=== PATIENT | male | born 1935 | race Caucasian/White ===

== ENCOUNTER 2019-04-27 12:27 | Inpatient (IN) | payer MEDICARE, BC ==
[~2019-04-27] VITALS: Ht 177.8 cm; Wt 88.7 kg
--- NOTE | ~2019-04-27 | HEMODYNAMI ---
PATIENT:VANE SINGH MEDICAL RECORD: [id number] : 39 [id number] ADMISSION DATE: 04/27/19 Generatedon:04/29/20199:39 Patient name: VANE SINGH Patient #: [id number] SSN: [id number] : 1935 Date of study: 04/29/2019 Page: Of Hemodynamic Procedure Report Patient Data Patient Demographics Procedure consent was obtained First Name: VANE Gender: Male Last Name: FRANCISCO : 1935 [facility] Initial: JEANA Age: 84 year(s) Patient #: [id number] Race: Unknown SSN: [id number] Additional ID: [id number] Contact details [address]: [address] [place] [address] State: [place] City: [place] Zip code: [address] Past Medical History Allergies Allergen Reaction Date Comments Reported Other allergy 04/29/2019 cipro Admission Admission Data Admission Date: 04/27/2019 Admission Time: 14:27 Arrival Date: 04/29/2019 Arrival Time: 0:00 Admit Source: Other Insurance Payor: Private Room #: D.2119 health insurance, Medicare [facility] #: [id number] Height (in.): 70 BSA: 2.09 (m2) Height (cm.): 177.8 BMI: 28.75 (kg/m2) Weight (lbs.): 200.4 Weight (kg.): 90.9 Lab Results Lab Result Date: 04/29/2019 Lab Result Time: 0:00 Biochemistry Name Units Result Min Max BUN mg/dl 14 --(--*-)-- 7 18 CK-MB ng/ml 4.3 --(----)*- 0 3.6 Creatinine mg/dl 0.9 --(-*--)-- 0.6 1.3 eGFR ml/min 85.75267 -*(----)-- 90 120 NONAFRICAN Troponin l ng/ml 0.848 --(----)-* 0 0.06 CBC Name Units Result Min Max Hemoglobin g/dl 15.1 --(-*--)-- 13.5 17.5 Procedure Procedure Types Cath Procedure Diagnostic Procedure C [facility] w/Coronaries Sedation Charges Moderate Sedation up to 15 minutes Procedure Description Procedure Date Procedure Date: 04/29/2019 Procedure Start Time: 9:13 Procedure End Time: 9:37 Procedure Staff Name Function Scott Jones MD Performing Physician Winter Coats RT Monitor Sunitha Romo RN Nurse Kayla Rosales RT Scrub Maikel Ledezma RT Scrub Procedure Data Cath Procedure Fluoroscopy Diagnostic fluoroscopy Total fluoroscopy Time: 3.9 time: 3.9 min min Diagnostic fluoroscopy Total fluoroscopy dose: 808 dose: 808 mGy mGy Contrast Material Contrast Material Type Amount (ml) Isovue 300 79 Entry Location Entry Primary Successful Side Size Upsize Upsize Entry Closure Baca ccessful Closure Location (Fr) 1 (Fr) 2 (Fr) Remarks Device Remarks Radial Right 6 Fr Mechanical artery Short Compression Estimated blood loss: 10 ml Diagnostic catheters Device Type Used For End Catheter Placement DIAGNOSTIC [place] 110cm 5 Procedure Fr catheter ([id number]) DIAGNOSTIC Stefan 110cm Procedure 5Fr catheter (633205) Procedure Complications No complications Procedure Medications Medication Administration Route Dosage 0.9% NaCl I.V. 100 ml/hr Oxygen NC 2 l/min Lidocaine 2% added to field 20 Heparin Flush Bag added to field 2 bags (1000units/500ml NS) Versed I.V. 1 mg Fentanyl I.V. 50 mcg Radial Cocktail added to field 1 syringe (Verapamil 2mg/Nitro 400mcg/Heparin 1500units) Versed I.V. 1 mg Fentanyl I.V. 50 mcg Hemodynamics Rest BSA: 2.09 (m2) HGB: 15.1 (g/dl) O2 Consumption: Estimated: 221.56 (ml/min) O2 Co nsumption indexed: Estimated:106.01 (ml/min/m) Heart Rate: 49 (bpm) Pressure Samples Time Site Value (mmHg) Purpose Heart Use Rate(bpm) 9:16 LV 96/-6,3 Snapshot 67 Gradients Valve Time Site Site Mean SEP/DFP Peak To Heart Use 1 2 (mmHg) (sec/min) Peak Rate (mmHg) (bpm) Aortic 9:16 LV AO 74 Snapshots Pre Cath Intra NCS Post Cath Vital Signs Time Heart Resp SPO2 etCO2 NIBP (mmHg) Rhythm Pain Sedation Rate (ipm) (%) (mmHg) Status Level (bpm) 8:58:08 56 30 96 33 137/71(91) NSR 0 (11) 10(A) , No pain 9:02:22 52 14 98 33.8 130/73(108) NSR 0 (11) 10(A) , No pain 9:06:38 48 18 95 33.8 114/59(86) NSR 0 (11) 10(A) , No pain 9:10:48 49 18 95 28.6 106/63(84) NSR 0 (11) 10(A) , No pain 9:14:56 53 16 95 37.6 112/57(76) NSR 0 (11) 9(A) , No pain 9:19:04 65 19 92 46.6 104/62(73) NSR 0 (11) 9(A) , No pain 9:23:11 57 17 90 33.1 100/54(74) NSR 0 (11) 9(A) , No pain 9:27:15 58 18 91 21.8 110/63(85) NSR 0 (11) 9(A) , No pain 9:31:23 56 19 95 0 102/62(79) NSR 0 (11) 9(A) , No pain 9:35:26 55 19 95 14.3 105/63(90) NSR 0 (11) 10(A) , No pain Medications Time Medication Route Dose Verified Delivered Reason Notes Ef fectiveness by by 8:58:16 0.9% NaCl I.V. 100 Scott Sunitha used for ml/hr Robert MICHELLE Demetrius formal waiter/waitress 8:58:28 Oxygen NC 2 l/min Scott Sunitha for low 02 Robert MICHELLE Demetrius sats RN 8:58:41 Lidocaine 2% added 20ml Sunitha Sunitha for local to vial Demetrius Demetrius anesthetic field RN RN 8:58:52 Heparin Flush added 2 bags Sunitha Sunitha used for Bag to Demetrius Demetrius procedure (1000units/500ml field RN RN NS) 9:11:36 Versed I.V. 1 mg Scott Sunitha for Robert Romo sedation RN 9:11:46 Fentanyl I.V. 50 mcg Scott Sunitha for Robert Romo sedation RN 9:13:18 Radial Cocktail added 1 Scott Sunitha used for (Verapamil to syringe Robert Romo procedure 2mg/Nitro field RN 400mcg/Heparin 1500units) 9:16:05 Fentanyl I.V. 50 mcg Scott Sunitha for Robert Romo sedation RN 9:16:57 Versed I.V. 1 mg Scott Sunitha for Robert Romo sedation hose suspender cutter Log Time Note 8:11:46 Informed consent obtained and on chart 8:29:12 Admit Source: Other 8:29:16 Arrival Date: 04/29/2019 12:00:00 AM 8:29:38 Insurance Payor : Private health insurance, Medicare 8:30:01 Patient Height : 70 inches 8:30:07 Patient Weight : 200.4 lbs 8:33:03 Lab Result : Creatinine 0.9 mg/dl 8:33:03 Lab Result : BUN 14 mg/dl 8:33:03 Lab Result : Hemoglobin 15.1 g/dl 8:33:03 Lab Result : eGFR NONAFRICAN 85.15679 ml/min 8:33:03 Lab Result : CK-MB 4.3 ng/ml 8:33:03 Lab Result : Troponin l 0.848 ng/ml 8:33:20 Diagnostic Cath Status : Urgent 8:34:45 Procedure Status Urgent Heart Cath (IP). 8:34:49 Sunitha Romo RN sent for patient. Start room use. 8:34:50 Time tracking: Regular hours (M-F 7:00 - 5:00) 8:35:06 Plan of Care:Hemodynamics will remain stable., Cardiac rhythm will remain stable., Comfort level will be maintained., Respiratory function will remain adequate., Patient/ family verbilizes understanding of procedure., Procedure tolerated without complication., Recovers from procedure without complications.. 8:35:16 Patient received from Med II to CCL 2 Alert and oriented. Tansferred to table in Supine position. 8:38:25 H&P Date Dictated: 04/27/2019 Within 30 days and on chart.. 8:38:47 2) 60-89 Mildly reduced kidney function, and other findings (as for stage 1) point to kidney disease. 8:39:21 Maximum allowable contrast dose (3.7 X eGFR X 0.75)238 ml. 8:56:56 Vital chart was started 8:58:16 0.9% NaCl 100 ml/hr I.V. was administered by Sunitha Romo RN; used for procedure; Verbal order read back and verified. 8:58:28 Oxygen 2 l/min NC was administered by Sunitha Romo RN; for low 02 sats; Verbal order read back and verified. 8:58:41 Lidocaine 2% 20ml vial added to field was administered by Sunitha Romo RN; for local anesthetic; Verbal order read back and verified. 8:58:52 Heparin Flush Bag (1000units/500ml NS) 2 bags added to field was administered by Sunitha Romo RN; used for procedure; Verbal order read back and verified. 9:05:21 Warm blankets applied, and lonnie hugger turned on for patient comfort. 9:05:22 Correct patient and procedure confirmed by team. 9:05:23 ECG and BP/O2 sat monitors applied to patient. 9:05:24 Baseline sample Acquired. 9:05:28 Rhythm: sinus rhythm 9:05:30 Full Disclosure recording started 9:05:31 Pre-procedure instructions explained to patient. 9:05:32 Pre-op teaching completed and patient verbalized understanding. 9:05:35 Family in patients room. 9:05:37 Patient NPO since Midnight. 9:05:50 Patient allergic to Other allergycipro 9:05:53 Is the patient allergic to Iodine/contrast media? No. 9:05:54 Was the patient premedicated? Yes 9:05:56 Is patient on blood thinner?No 9:06:12 Bleeding risk 1.2%. 9:06:15 Patient diabetic? Yes. 9:06:16 If diabetic: On Metformin? Yes 9:06:23 If on Metformin: Last Dose? 04/26/2019 9:06:31 Previous problem with sedation/anesthesia? Yes nausea 9:06:34 Snore? Yes 9:06:35 Sleep apnea? No 9:06:41 Dentures? No ? 9:06:52 Pre procedure: right dorsailis pedis pulse 2+ Normal; easily identifiable; not easily obliterated 9:07:01 IV patent on arrival in right forearm with 0.9% NaCl at [facility]. 9:07:24 Patient arrived on heprin at [facility] IV drip right forearm 9:07:33 Lab results completed and on chart. 9:07:37 Right Radial & Right Groin area was prepped with chlora-prep and draped in sterile fashion 9:07:38 Alarms reviewed by R. N. 9:07:39 Sharps counted by scrub and verified by R.N. 9::41 Physician paged 9:08:12 Physician arrived 9:: --------ALL STOP TIME OUT------ 9:08:14 Final Timeout: patient, procedure, and site verified with staff and physician. All members of the team are in agreement. 9:08:17 Right Radial & Right Groin site verified by team. 9:08:34 Fire Safety Assessment: A--An alcohol-based skin anteseptic being used preoperatively., C--Open oxygen or nitrous oxide is being used., D--An ESU, laser, or fiber-optic light is being used. 9:09:06 Physical assessment completed. ASA score P 3 - A patient with severe systemic disease as per Scott Jones MD. 9:09:17 Sedation plan: IV Moderate Sedation Medication:Versed, Fentanyl 9:10:44 Zero performed for pressure channel P1 9:11:36 Versed 1 mg I.V. was administered by Sunitha Romo RN; for sedation; Verbal order read back and verified. 9:11:46 Fentanyl 50 mcg I.V. was administered by Sunitha Romo RN; for sedation; Verbal order read back and verified. 9:12:55 Zero performed for pressure channel P1 9:13:06 Procedure started. 9:13:11 Local anesthetic to right radial artery with Lidocaine 2% by Scott Jones MD.INITIAL ACCESS ONLY 9:13:18 Radial Cocktail (Verapamil 2mg/Nitro 400mcg/Heparin 1500units) 1 syringe added to field was administered by Sunitha Romo RN; used for procedure; Verbal order read back and verified. 9:13:20 A 6 Fr Short sheath was inserted into the Right Radial artery 9:13:46 Use device set Radial Dx or PCI 9:13:48 ACIST Syringe (05647) opened to sterile field. 9:13:49 Medline Cath Pack ([id number]) opened to sterile field. 9:13:49 Bag Decanter () opened to sterile field. 9:13:50 ACIST Hand Control (81021) opened to sterile field. 9:13:50 ACIST Manifold (53662) opened to sterile field. 9:13:51 Tegaderm 4 x 4 (1626W) opened to sterile field. 9:13:52 MBrace Wrist Support ([id number]) opened to sterile field. 9:13:53 NEEDLE Cook 21G 4cm Radial (L34435) opened to sterile field. 9:13:57 EMERALD Guide Wire (881-385) opened to sterile field. 9:13:58 SHEATH 6FR RAIN (3302267) opened to sterile field. 9:15:06 A DIAGNOSTIC [place] 110cm 5 Fr catheter (400460) was advanced over the wire and used for Procedure. 9:15:52 LV angiography performed. 9:16:05 Fentanyl 50 mcg I.V. was administered by Sunitha Romo RN; for sedation; Verbal order read back and verified. 9:16:16 LV gram done using MERRITT 9:16:37 EF : 50 % 9:16:57 Versed 1 mg I.V. was administered by Sunitha Romo RN; for sedation; Verbal order read back and verified. 9:18:26 RCA angiography performed. 9:18:52 Catheter exchanged over wire. 9:19:38 A DIAGNOSTIC Stefan 110cm 5Fr catheter (076871) was advanced over the wire and used for Procedure. 9:19:41 LCA angiography performed. 9:22:55 ACCDominant side:Right 9:23:50 Catheter removed. 9:23:54 Mortality risk .2%. 9:30:39 ZEPHYR REGULAR TR BAND (394070) opened to sterile field. 9:33:08 Sheath removed intact; hemostasis achieved with Mechanical Compression to the Right Radial artery. 9:33:12 Procedure ended.(Physican Out) 9:34:04 Fluoroscopy time 03.90 minutes. 9:34:31 Fluoroscopy dose: 808 mGy 9:34:31 Flurop Dose total: 808 9:34:38 Dose Area Product 64328 mGy/cm. 9:34:42 Contrast amount:Isovue 300 79ml. 9:34:44 Maximum allowable dose exceeded? No. 9:34:46 Sharps counted by scrub and verified by R.N. 9:35:19 [place] band inflated with 8cc of air. 9:35:22 Insertion/operative site no bleeding no hematoma. 9:35:32 Post right radial artery:stable 9:35:35 Post Procedure Pulses reassessed and unchanged 9:35:43 Post-procedure physical assessment completed. ASA score P 3 - A patient with severe systemic disease as per Scott Jones MD. 9:35:48 Post procedure rhythm: unchanged. 9:35:51 Estimated blood loss: 10 ml 9:35:53 Post procedure instruction explained to patient.Patient verbalizes understanding. 9:36:20 Procedure type changed to Cath procedure, Diagnostic procedure, LHC, [facility] w/Coronaries, Sedation Charges, Moderate Sedation up to 15 minutes 9:37:03 Procedure and supply charges have been captured, reviewed, submitted and are correct. 9:37:13 Procedure Complication : No complications 9:37:18 Vital chart was stopped 9:37:22 [facility] Findings: MVD- CABG consult 9:37:25 Operative report dictated upon procedure completion. 9:37:26 See physician's report for complete and final results. 9:37:29 Report given to [facility]. 9:37:34 Patient transfered to [facility] with Bed. 9:37:36 Procedure ended. 9:37:36 Full Disclosure recording stopped 9:37:45 End room use (Document Last) 9:38:00 restarted the heprin 9:39:21 Device Usage Item Name Manufacture Quantity Catalog Hospital Part Current Minima l Lot# / Number Charge Number Stock Stock Serial# Code ACIST Acist 1 23170 [id number] 469769 515597 20 Syringe Medical (23625) Systems Inc Medline Medline 1 [id number] 253348 28435 006754 5 Cath Pack ([id number]) Bag Microtek 1 437423 66958 498417 5 Decanter Medical Inc. () ACIST Hand Acist 1 05167 331279 448514 084768 5 Control Medical (80360) Systems Inc ACIST Acist 1 93681 162679 159594 351186 5 Manifold Medical (79632) Systems Inc Tegaderm 4 3M 1 1626W 764899 514492 213435 5 x 4 (1626W) MBrace Advanced 1 140-0250-00 790225 92330 347288 5 Wrist Vascular Support Dynamics (022871981) NEEDLE Cook Cook Medical 1 K29245 137926 038542 404325 5 21G 4cm Radial (B76007) EMERALD Cardinal 1 502-888 430869 024180 376565 5 Guide Wire Health (324-097) SHEATH 6FR Cardinal 1 9795842 367552 4652031 177283 5 RAIN Health (4043497) DIAGNOSTIC Terumo 1 40-5013 358940 252135 426895 5 [place] 110cm 5 Fr catheter (196142) DIAGNOSTIC Terumo 1 40-5023 120915 119995 349938 5 Stefan 110cm 5Fr catheter (418598) ZEPHYR Cardinal 1 050755 343354 9978896 133820 5 REGULAR TR Health BAND (768035) Signature Audit [place] Stage Time Signature Unsigned Intra-Procedure 04/29/2019 Winter Coats 9:38:26 AM RT(R) Intra-Procedure 04/29/2019 Sunitha 9:39:21 AM Demetrius TORRES Intra-Procedure 04/29/2019 Scott Jones MD 9:39:50 AM Signatures Performing Physician : Signature : Scott Jones MD Date : Time : Monitor : Winter Coats Signature : RT Date : Time : Nurse : Sunitha Signature : Demetrius TORRES Date : Time : [facility] [address] [place] [address]
[2019-04-27] MEDS ORDERED: LIPITOR20 MG PO (12:34)
[2019-04-27] MEDS ORDERED: GLUCOPHAGE500 MG PO (12:36)
[2019-04-27] MEDS ORDERED: LISINOPRIL20 MG PO (12:36)
[2019-04-27] MEDS ORDERED: OMEPRAZOLE20 M1 PO (12:37)
[2019-04-27] MEDS ORDERED: MULTI-DAY VITAM1 TAB PO (12:37)
[2019-04-27 13:08] LABS: BASOPHILS 0.6 % (0-2); EOSINOPHILS 2.9 % (0-7); HEMATOCRIT 44.4 % (42.0-54.0); HEMOGLOBIN 15.1 g/dL (13.5-17.5); IMMATURE GRANULOCYTES 0.4 % (0-5); LYMPHOCYTES 27.8 % (15-50); MCH 30.5 pg (26.0-34.0); MCV 89.7 fL (80.0-100.0); MEAN PLATELET VOLUME 8.9 fL (7.4-10.4); MONOCYTES 7.2 % (2-11); NEUTROPHILS 61.1 % (40-80); PLATELET COUNT 185 10x3/uL (130-400); RBC 4.95 10x6/uL (4.20-6.10); RDW 13.4 % (11.5-14.5); WBC 7.8 10x3/uL (4.8-10.8)
[2019-04-27 13:18] LABS: APTT 42.8 SECONDS (22.8-39.4); INR 1.1 (0.85-1.17); PROTIME 13.7 SECONDS (11.6-15.0)
[2019-04-27 13:31] VITALS: BP 130/71
[2019-04-27 13:58] LABS: ALBUMIN 3.7 g/dL (3.4-5.0); ALKALINE PHOSPHATASE 47 U/L (46-116); ALT (SGPT) 24 U/L (10-68); BILIRUBIN - TOTAL 0.92 mg/dL (0.2-1.3); CALC OSMOLALITY 282 mosm/kg (275-300); CARBON DIOXIDE 32.2 mmol/L (21.0-32.0); CHLORIDE - SERUM 104 mmol/L (98-107); CREATININE - SERUM 0.8 mg/dL (0.6-1.3); GLUCOSE 117 mg/dL (74-106); POTASSIUM - SERUM 4.1 mmol/L (3.5-5.1); PROTEIN - SERUM 6.7 g/dL (6.4-8.2); SODIUM 141 mmol/L (136-145); UREA NITROGEN 14 mg/dL (7-18); eGFR NON AFRICAN AMERICAN > 90 mL/min (90-120)
[2019-04-27 14:13] LABS: CKMB 14.8 U/L (0.0-3.6); CREATINE KINASE 117 UL (21-232)
[2019-04-27 14:58] LABS: APTT 42.8 SECONDS (22.8-39.4); INR 1.07 (0.85-1.17); PROTIME 13.4 SECONDS (11.6-15.0)
--- NOTE | 2019-04-27 15:44 | NUR ---
TRANSFER FROM ER BY STRETCHER. OREINTED TO ROOM. CALL LIGHT IN REACH. WILL CONT. PLAN OF CARE.
--- NOTE | 2019-04-27 15:49 | NUR ---
PT ARRIVED TO FLOOR ALERT AND ORIENTED. LEFT FA IV INFUSING HEPARIN DRIP AT 10. FAMILY AT BEDSIDE. PT ON ROOM AIR. PLACED TELEMETRY ON PT AND HE IS RUNNING SINUS KAREEM. WILL CONTINUE TO MONITOR. BED LOW. CL IN REACH.
[2019-04-27 15:51] VITALS: BP 128/66; BMI 28.7
--- NOTE | 2019-04-27 17:21 | NUR ---
PT GIVEN UA COLLECTION CUP AND EXPLANATION GIVEN ON HOW TO COLLECT. PT VERBALZIED UNDERSTANDING.
[2019-04-27 18:19] VITALS: BP 128/66
[2019-04-27 19:07] LABS: APPEARANCE CLOUDY (CLEAR); BILIRUBIN NEGATIVE (NEGATIVE); COLOR YELLOW (YELLOW); GLUCOSE NEGATIVE (NEGATIVE); KETONE SMALL mg/dL (NEGATIVE); NITRITE NEGATIVE (NEGATIVE); PROTEIN 1+ mg/dL (NEGATIVE); SPECIFIC GRAVITY 1.015 (1.005-1.020); UROBILINOGEN NORMAL (NORMAL)
[2019-04-27 19:08] LABS: BACTERIA FEW /hpf (NEGATIVE)
[2019-04-27 19:38] LABS: CKMB 10.9 U/L (0.0-3.6); CREATINE KINASE 108 UL (21-232)
[2019-04-27 19:39] LABS: TROPONIN-I 1.962 ng/mL (0.000-0.060)
--- NOTE | 2019-04-27 19:45 | NUR ---
INITIAL ROUNDS AND ASSESSMENT COMPLETED. PT UP AND ABOUT IN HIS ROOM. WEARING A BRIEF. ALERT/ORIENTED. HEPARIN DRIP INFUSING AT 10ML/HR TO RFA. SR PER TELEMETRY. PT TEACHING ON NPO AFTER MIDNIGHT UNTIL SEEN BY WRIST LINER IN AM.
[2019-04-27 20:00] VITALS: BP 114/65
--- NOTE | 2019-04-27 20:16 | NUR ---
1920 PTT RESULT 112.1. HEPARIN DRIP ON HOLD X 30 MINUTES. THEN WILL RESUME AT 8ML/HR.
--- NOTE | 2019-04-27 21:15 | NUR ---
HEPARIN DRIP RESTARTED AT 8ML/HR. NEXT PTT IN 6 HOURS.
[2019-04-28 00:30] VITALS: BP 141/58
[2019-04-28 03:14] LABS: BASOPHILS 1.1 % (0-2); EOSINOPHILS 4.3 % (0-7); HEMATOCRIT 42.1 % (42.0-54.0); HEMOGLOBIN 14.2 g/dL (13.5-17.5); IMMATURE GRANULOCYTES 0.4 % (0-5); LYMPHOCYTES 34.4 % (15-50); MCH 30.1 pg (26.0-34.0); MCHC 33.7 g/dL (31.0-37.0); MCV 89.4 fL (80.0-100.0); MEAN PLATELET VOLUME 8.9 fL (7.4-10.4); MONOCYTES 8.6 % (2-11); NEUTROPHILS 51.2 % (40-80); PLATELET COUNT 199 10x3/uL (130-400); RBC 4.71 10x6/uL (4.20-6.10); RDW 13.4 % (11.5-14.5); WBC 8.5 10x3/uL (4.8-10.8)
[2019-04-28 03:27] LABS: INR 1.13 (0.85-1.17)
[2019-04-28 03:32] LABS: APTT 67.6 SECONDS (22.8-39.4)
[2019-04-28 03:38] LABS: CALC OSMOLALITY 286 mosm/kg (275-300); CALCIUM 8.7 mg/dL (8.5-10.1); CHLORIDE - SERUM 104 mmol/L (98-107); CKMB 5.5 U/L (0.0-3.6); CREATINE KINASE 76 UL (21-232); CREATININE - SERUM 0.9 mg/dL (0.6-1.3); GLUCOSE 119 mg/dL (74-106); POTASSIUM - SERUM 4.2 mmol/L (3.5-5.1); SODIUM 143 mmol/L (136-145); UREA NITROGEN 14 mg/dL (7-18); eGFR NON AFRICAN AMERICAN 86 mL/min (90-120)
[2019-04-28 03:46] LABS: TROPONIN-I 1.394 ng/mL (0.000-0.060)
[2019-04-28 04:00] VITALS: BP 114/55
--- NOTE | 2019-04-28 04:09 | NUR ---
SCHEDULED PTT 67.6. WITHIN PARAMETERS. NEXT PTT ON THE FOLLOWING AM.
--- NOTE | 2019-04-28 06:28 | NUR ---
PT RESTING IN BED. HEPARIN DRIP NOW INFUSING AT 8ML/HR AND IS IN THERAPEUTIC RANGE. NO REPORTS OF PAIN OR DISCOMFORT. 57/SB PER TELEMETRY. CPOC AND REPORT TO ONCOMING NURSE.
[2019-04-28 08:13] VITALS: BP 108/54
[2019-04-28 09:51] LABS: CKMB 4.3 U/L (0.0-3.6); CREATINE KINASE 68 UL (21-232)
[2019-04-28 09:52] LABS: TROPONIN-I 0.848 ng/mL (0.000-0.060)
[2019-04-28 10:54] LABS: ALT (SGPT) 20 U/L (10-68); CALC OSMOLALITY 286 mosm/kg (275-300); CALCIUM 8.7 mg/dL (8.5-10.1); CARBON DIOXIDE 27.3 mmol/L (21.0-32.0); CHLORIDE - SERUM 104 mmol/L (98-107); CHOL - HDL RATIO 2.4 ratio (2.3-4.9); CHOLESTEROL, TOTAL 131 mg/dL (0-200); CREATININE - SERUM 0.9 mg/dL (0.6-1.3); GLUCOSE 115 mg/dL (74-106); HDL CHOLESTEROL 55 mg/dL (32-96); LDL CHOLESTEROL 55 mg/dL (0-100); POTASSIUM - SERUM 4.2 mmol/L (3.5-5.1); SODIUM 143 mmol/L (136-145); TRIGLYCERIDE 109 mg/dL (30-200); UREA NITROGEN 14 mg/dL (7-18); eGFR NON AFRICAN AMERICAN 86 mL/min (90-120)
[2019-04-28 11:11] LABS: BASOPHILS 1.2 % (0-2); EOSINOPHILS 3.3 % (0-7); HEMATOCRIT 45.5 % (42.0-54.0); HEMOGLOBIN 15.6 g/dL (13.5-17.5); IMMATURE GRANULOCYTES 0.2 % (0-5); LYMPHOCYTES 28.3 % (15-50); MCH 30.6 pg (26.0-34.0); MCHC 34.3 g/dL (31.0-37.0); MCV 89.4 fL (80.0-100.0); MEAN PLATELET VOLUME 8.9 fL (7.4-10.4); MONOCYTES 6.7 % (2-11); NEUTROPHILS 60.3 % (40-80); PLATELET COUNT 203 10x3/uL (130-400); RBC 5.09 10x6/uL (4.20-6.10); RDW 13.4 % (11.5-14.5); WBC 8.1 10x3/uL (4.8-10.8)
[2019-04-28 11:32] VITALS: BP 104/63
--- NOTE | 2019-04-28 14:11 | NUR ---
TELEMETRY SR. HEPRIN GTT INFUSING. CONSENTS SIGNED FOR [facility]. WILL CONT. PLAN OF CARE.
[2019-04-28 17:10] VITALS: BP 109/65
--- NOTE | 2019-04-28 19:51 | NUR ---
INITIAL ROUNDS AND ASSESSMENT COMPLETED. PT ALERT/ORIENTED. SR/63 PER TELEMETRY. NONLABORED RESPIRATIONS ON ROOM AIR. HEPARIN DRIP INFUSING AT 8ML/HR, NEXT PTT IN AM. PT TEACHING ON NPO AFTER MIDNIGHT FOR HEART CATH IN AM. CPOC.
[2019-04-28 20:00] VITALS: BP 110/52
--- NOTE | 2019-04-28 21:16 | NUR ---
BEDTIME MEDS GIVEN. AT BEDSIDE. PT ALERT/ORIENTED. FSBS 193, NO SLIDING SCALE INSULIN PATIENT WILL BE NPO UNTIL [facility] IN AM. CPOC. CALL LIGHT IN REACH.
[2019-04-29] VITALS: BP 104/51
[2019-04-29 04:00] VITALS: BP 165/63
--- NOTE | 2019-04-29 05:28 | NUR ---
PT TOOK SHOWER. IV HEPARIN INFUSING. AT BEDSIDE. CPOC.
--- NOTE | 2019-04-29 07:15 | NUR ---
RECEIVED PT IN BED AAOX4 RESP UNLABORED SKIN W/D COLOR WNL DENIES ANY PAIN OR DISCOMFORT HEPARIN GTT INCREASE 100 UNITS PER HR AT THIS TIME NAD NOTED
--- NOTE | 2019-04-29 08:45 | NUR ---
PT TO ENVIRONMENTAL SERVICES ATTENDANT VIA BED
[2019-04-29 09:50] VITALS: BMI 28.6
--- NOTE | 2019-04-29 10:00 | NUR ---
FSBS 82
--- NOTE | 2019-04-29 12:22 | NUR ---
FSBS 213 REGULAR INSULIN 4 UNITS GIVEN SQ RT ARM
[2019-04-29 13:39] VITALS: BP 119/76
[2019-04-29 15:33] VITALS: Ht 177.8 cm; Wt 88.7 kg
--- NOTE | 2019-04-29 16:19 | NUR ---
FSBS 82
[2019-04-29 17:49] VITALS: BP 123/68
--- NOTE | 2019-04-29 19:00 | NUR ---
PATIENT IS AAO AND IS RESTING IN BED WATCHING TV. DENIES ANY PAIN OR CONCERNS AT THIS TIME. BED IS IN THE LOWEST POSITION AND CALL LIGHT WITH IN REACH.
[2019-04-29 20:00] VITALS: BP 132/69
[2019-04-30] VITALS: BP 104/59
[2019-04-30 04:00] VITALS: BP 117/60
[2019-04-30 05:36] LABS: ALKALINE PHOSPHATASE 42 U/L (46-116); ALT (SGPT) 20 U/L (10-68); BILIRUBIN - TOTAL 0.66 mg/dL (0.2-1.3); CALC OSMOLALITY 282 mosm/kg (275-300); CALCIUM 8.4 mg/dL (8.5-10.1); CARBON DIOXIDE 27.2 mmol/L (21.0-32.0); CHLORIDE - SERUM 105 mmol/L (98-107); CREATININE - SERUM 0.9 mg/dL (0.6-1.3); GLUCOSE 115 mg/dL (74-106); PROTEIN - SERUM 6.3 g/dL (6.4-8.2); SODIUM 141 mmol/L (136-145); UREA NITROGEN 15 mg/dL (7-18); eGFR NON AFRICAN AMERICAN 86 mL/min (90-120)
[2019-04-30 05:41] LABS: BASOPHILS 0.9 % (0-2); HEMATOCRIT 39.4 % (42.0-54.0); HEMOGLOBIN 13.3 g/dL (13.5-17.5); IMMATURE GRANULOCYTES 0.3 % (0-5); LYMPHOCYTES 29.9 % (15-50); MCH 29.8 pg (26.0-34.0); MCHC 33.8 g/dL (31.0-37.0); MCV 88.3 fL (80.0-100.0); MEAN PLATELET VOLUME 9.1 fL (7.4-10.4); MONOCYTES 9.1 % (2-11); NEUTROPHILS 55.8 % (40-80); PLATELET COUNT 174 10x3/uL (130-400); RBC 4.46 10x6/uL (4.20-6.10); RDW 13.4 % (11.5-14.5); WBC 7.6 10x3/uL (4.8-10.8)
--- NOTE | 2019-04-30 07:30 | NUR ---
RECIEVED REPORT. ALERT AND ORIENTED X4. UP TO RESTROOM. SPOUSE AT BEDSIDE. SINUS RYTHM 60 ON TELEMETRY. DENIES ANY NEEDS. CONTINUE PLAN OF CARE AND SAFETY PRECAUTIONS.
[2019-04-30 09:45] VITALS: BP 127/72
[2019-04-30 12:37] VITALS: BP 114/65
[2019-04-30 14:13] LABS: BASOPHILS 0.9 % (0-2); EOSINOPHILS 4.3 % (0-7); HEMATOCRIT 42.4 % (42.0-54.0); HEMOGLOBIN 14.2 g/dL (13.5-17.5); IMMATURE GRANULOCYTES 0.3 % (0-5); MCH 29.8 pg (26.0-34.0); MCHC 33.5 g/dL (31.0-37.0); MCV 89.1 fL (80.0-100.0); MEAN PLATELET VOLUME 9.1 fL (7.4-10.4); MONOCYTES 7.8 % (2-11); NEUTROPHILS 59.7 % (40-80); PLATELET COUNT 174 10x3/uL (130-400); RBC 4.76 10x6/uL (4.20-6.10); RDW 13.4 % (11.5-14.5); WBC 6.7 10x3/uL (4.8-10.8)
[2019-04-30 14:22] LABS: INR 1.29 (0.85-1.17); PROTIME 15.6 SECONDS (11.6-15.0)
[2019-04-30 14:24] LABS: APTT 106.3 SECONDS (22.8-39.4)
[2019-04-30 14:35] LABS: ALBUMIN 3.4 g/dL (3.4-5.0); ALKALINE PHOSPHATASE 48 U/L (46-116); BILIRUBIN - TOTAL 0.49 mg/dL (0.2-1.3); CALCIUM 8.2 mg/dL (8.5-10.1); CARBON DIOXIDE 29.7 mmol/L (21.0-32.0); CHLORIDE - SERUM 105 mmol/L (98-107); CHOLESTEROL, TOTAL 146 mg/dL (0-200); PHOSPHOROUS 4.3 mg/dL (2.5-4.9); POTASSIUM - SERUM 4.3 mmol/L (3.5-5.1); PROTEIN - SERUM 6.4 g/dL (6.4-8.2); SODIUM 140 mmol/L (136-145); T4 THYROXIN - FREE 0.99 ng/dL (0.76-1.46); THYROID STIMULATING HORMONE 2.14 uIU/mL (0.36-3.74); UREA NITROGEN 15 mg/dL (7-18); URIC ACID 4.8 mg/dL (2.6-7.2); eGFR NON AFRICAN AMERICAN 76 mL/min (90-120)
[2019-04-30 14:40] LABS: ALT (SGPT) 27 U/L (10-68); CALC OSMOLALITY 284 mosm/kg (275-300); GLUCOSE 197 mg/dL (74-106)
--- NOTE | 2019-04-30 15:39 | MORECARE ---
CASE MANAGEMENT DISCHARGE SUMMARY PATIENT: VANE SINGH UNIT: [id number] ADM DATE: 04/27/19 AGE: 84 : 37 SEX: M ROOM/BED: D.7718 AUTHOR: MARISA,DOC PHYSICIAN: REFERRING PHYSICIAN: CHAUNCEY IGNACIO MD DATE OF SERVICE: 04/30/19 Discharge Plan Patient Name: VANE SINGH Facility: [facility]:[place] : 1935 Planned Disposition: Home Anticipated Discharge Date: 04/30/19 Discharge Date: Expected LOS: 3 Initial Reviewer: [email or web address] Initial Review Date: 04/30/2019 Generated: 04/30/19 4:39 pm Comments DCP- Discharge Planning Updated by [email or web address]: Kip Crowe on 04/30/19 2:[address] Patient Name: VANE SINGH Admission Status: ER Accout number: [id number] Admission Date: 04-27-2019 : 1935 Admission Diagnosis: Attending: CHAUNCEY IGNACIO Current LOS: 3 Anticipated DC Date: 04-30-2019 Planned Disposition: Home Primary Insurance: MEDICARE A & B Discharge Planning Comments: CM MET WITH PT AND SPOUSE IN ROOM TO DISCUSS DISCHARGE PLANNING AND NEEDS. VANE SINGH provided verbal consent to discuss current and ongoing needs with/in the presence of: , JENN. PT REPORTS LIVING AT HOME INDEPENDENTLY WITH SPOUSE. PT HAS A WALKER AND BEDSIDE COMMODE THAT HE DOES NOT USE. PT HAS NO NO MEDICAL EQUIPMENT PROVIDER PREFERENCE. PT HAS NO OUTSIDE SERVICES ASSISTING IN THE HOME. CM DISCUSSED AVAILABILITY OF HOME HEALTH, REHAB SERVICES AND MEDICAL EQUIPMENT. PT DENIES DISCHARGE NEEDS, REPORTS HIS WILL PICK HIM UP FOR DISCHARGE HOME. PT PLANS TO DISCHARGE HOME WITH SPOUSE, SPOUSE TO TRANSPORT HOME AT DISCHARGE. PT HAS NO ANTICIPATED DISCHARGE NEEDS AT THIS TIME. CM TO FOLLOW AND ASSIST IF NEEDED. Corn Sheller Operator: Kip Crowe DCPIA - Discharge Planning Initial Assessment Updated by [email or web address]: Kip Crowe on 04/30/19 3:29 pm * Is the patient Alert and Oriented? Yes * How many steps to enter\exit or inside your home? * PCP DR. ALEXEY G[facility] * Pharmacy [facility] IN [place] OR [place] MAIL ORDER * Preadmission Environment Home with Family * ADLs Independent * Equipment Bedside Commode Walker * Other Equipment NO MEDICAL EQUIPMENT PROVIDER PREFERENCE * List name and contact numbers for known caregivers / representatives who currently or will assist patient after discharge: JENN SINGH, SPOUSE, * Verbal permission to speak to the caregivers and representatives has been obtained from the patient. Yes * Community resources currently utilized None * Please name any agencies selected above. NONE * Additional services required to return to the preadmission environment? No * Can the patient safely return to the preadmission environment? Yes * Has this patient been hospitalized within the prior 30 days at any hospital? Yes Patient Name: VANE SINGH Page [id number] at 1539 All edits/amendments must be made on the electronic document DICTATION DATE: 04/30/191538 BILINGUAL ACCOUNT MANAGER: ZEESHAN 04/30/191538 RPT#: [id number] DC DATE: STATUS: ADM IN [facility] [address] [place] [address] END OF REPORT
[2019-04-30 18:06] VITALS: BP 115/62
--- NOTE | 2019-04-30 18:08 | NUR ---
ALERT AND ORIENTED X4. SITTING UP IN BED. FAMILY AT BEDSIDE. BILATERAL ARM BLOOD PRESSURES DOCUMENTED ON FRONT OF CHART. MEDICATIONS ON FRONT OF CHART. CONSENTS FOR BYPASS SIGNED ON CHART. SINUS RYTHM ON TELEMETY. HEPARIN DRIP STOPPED AT 1530 FOR 30mins PER PROTOCOL. DECREASE HEPARIN 200 PER PROTOCOL. 1600 RESTART HEPARIN AT 9cc/HR. DENIES ANY NEEDS. CONTINUE PLAN OF CARE AND SAFETY PRECAUTIONS.
--- NOTE | 2019-04-30 19:45 | NUR ---
ASSESSMENT COMPLETE, PT A&O. RESPERATIONS EVEN ON RA. IV TO RIGHT AC WITH HEPARIN DRIP INFUSING AT 9 CC/HR. DISCUSSED WITH PT AND PRE-PROCEDURE ORDERS, PT DECIDED THAT HE WANTS TO GET CLIPPED AND SHOWERED TONIGHT. NOTIFIED GAS TRUCK DRIVER TO CLIP PT TONIGHT. PT DENIES PAIN OR NEEDS, BED LOW, CL IN REACH.
[2019-04-30 20:00] VITALS: BP 119/68
--- NOTE | 2019-04-30 21:08 | NUR ---
HS MEDS GIVEN WITH FRESH ICE WATER. BS 164, NO COVERAGE GIVEN DUE TO PT BEING NPO AFTER MN FOR CABG. OFFERED PT HS SNACK, PT DECLINED. LOAN AND CREDIT MANAGER AT BED SIDE, PT CURRENTLY BEING CLIPPED AND HIBICLENSE SHOWER TO FOLLOW.
--- NOTE | 2019-04-30 21:52 | NUR ---
URINE SPECIMINE COLLECTED AND TAKEN TO LAB.
[2019-04-30 22:43] LABS: APPEARANCE CLEAR (CLEAR); BILIRUBIN NEGATIVE (NEGATIVE); COLOR YELLOW (YELLOW); GLUCOSE NEGATIVE (NEGATIVE); KETONE NEGATIVE (NEGATIVE); NITRITE NEGATIVE (NEGATIVE); PROTEIN NEGATIVE (NEGATIVE); RED CELLS - URINE OCC /hpf (0-5); UROBILINOGEN NORMAL (NORMAL); WHITE CELLS - URINE 0-5 /hpf (NEGATIVE)
[2019-05-01] VITALS (32 sets, daily range): BP systolic 72–133; BP diastolic 50–75
--- NOTE | 2019-05-01 01:11 | NUR ---
RESTING WITH EYES CLOSED, RESPERATIONS EVEN, NO S/S DISTRESS NOTED.
--- NOTE | 2019-05-01 04:00 | NUR ---
HEPARIN DRIP DISCONTINUED ORDERED.
[2019-05-01 06:05] LABS: BASOPHILS 0.6 % (0-2); EOSINOPHILS 5.3 % (0-7); HEMATOCRIT 39.2 % (42.0-54.0); HEMOGLOBIN 13.1 g/dL (13.5-17.5); IMMATURE GRANULOCYTES 0.5 % (0-5); LYMPHOCYTES 30.4 % (15-50); MCHC 33.4 g/dL (31.0-37.0); MCV 89.7 fL (80.0-100.0); MEAN PLATELET VOLUME 9.1 fL (7.4-10.4); NEUTROPHILS 54.2 % (40-80); PLATELET COUNT 159 10x3/uL (130-400); RBC 4.37 10x6/uL (4.20-6.10); RDW 13.6 % (11.5-14.5); WBC 6.4 10x3/uL (4.8-10.8)
[2019-05-01 06:47] LABS: ALBUMIN 3.1 g/dL (3.4-5.0); ALKALINE PHOSPHATASE 41 U/L (46-116); ALT (SGPT) 23 U/L (10-68); BILIRUBIN - TOTAL 0.67 mg/dL (0.2-1.3); CALC OSMOLALITY 285 mosm/kg (275-300); CALCIUM 8.5 mg/dL (8.5-10.1); CHLORIDE - SERUM 105 mmol/L (98-107); CREATININE - SERUM 0.9 mg/dL (0.6-1.3); PROTEIN - SERUM 6.3 g/dL (6.4-8.2); SODIUM 142 mmol/L (136-145); UREA NITROGEN 14 mg/dL (7-18); eGFR NON AFRICAN AMERICAN 86 mL/min (90-120)
[2019-05-01 06:53] LABS: GLUCOSE 129 mg/dL (74-106)
--- NOTE | 2019-05-01 10:31 | NUR ---
FSBS 109. PRE-OPS GIVEN. TO OR BY BED.
--- NOTE | 2019-05-01 17:10 | NUR ---
PT ARRIVED TO UNIT 1702. VENTILATED WITH 8.0 ETT, 22 AT THE LIP. SEDATED. RIGHT IJ CENTRAL LINE. LEFT RADIAL ART LINE (THAT IS NOT SEWN IN!) LEFT LEG HARVEST SITES, WRAPPED IN KERLEX. ROGERS AND SCD ON RIGHT LEG. PALPABLE PULSES. PT HAS CHEST TUBE X2, LEFT RADHA DRAIN. TPM WIRES X2 COILED UNDER DRESSING. ENRIQUE CATHETER. AFEBRILE.
--- NOTE | 2019-05-01 17:37 | NUR ---
ATTEMPTED TO LET FAMILY BACK TO SEE PATIENT. NO FAMILY FOUND IN WAITING ROOM.
--- NOTE | 2019-05-01 18:06 | NUR ---
JENN CELL PHONE [phone] BROTHER CELL PHONE [phone]
--- NOTE | 2019-05-01 18:50 | NUR ---
FAMILY REQUESTS THAT IF PT NEEDS REHAB THAT IT BE IN [place]
--- NOTE | 2019-05-01 19:45 | NUR ---
RT AMAURY CHANGED VENT SETTINGS TO CPAP, PT TOLLERATING WELL, NO ACUTE S/S OF DISTRESS NOTED, WILL CONTINUE TO MONITOR
--- NOTE | 2019-05-01 21:08 | NUR ---
RT AMAURY EXTUBATED PT WITH RN AT BEDSIDE, PT TOLERATING WELL, NO S/S OF ACUTE DISTRESS NOTED, VSS, PLACED ON 4L/MIN HIGH FLOW NC, PT ABLE TO ANSWER QUESTIONS, WILL CONTINUE TO MONITOR
--- NOTE | 2019-05-01 22:00 | NUR ---
I/S COMPLETED, PT PULLED 750-1000ML x10, TCDB COMPLETED, PT HAD PRODUCTIVE COUGH WITH THICK WHITE SPUTUM, VSS, WILL CONTINUE TO MONITOR
--- NOTE | 2019-05-01 22:30 | NUR ---
LEFT RADIAL ART LINE WAVEFORM DAMPENED ON CM, ATTEMPTS TO REPOSITION LEFT EXTREMITY, FLUSHED AND RE-ZEROED ART LINE, NIBP READINGS Q15MIN ON RIGHT UPPER EXTREMITY; 120/61(80). OTHER VSS, WILL CONTINUE TO MONITOR
--- NOTE | 2019-05-01 23:00 | NUR ---
REASSESSMENT COMPLETE SEE FLOW SHEET, PT AWAKE AND ALERT, ICE CHIPS AND SIPS OF H2O PER REQUEST,TCDB AND I/S COMPLETED x10 750-1000ML, REPOSITIONED FOR COMFORT, VSS, NSR ON CM, I/O'S COLLECTED, RADHA DRAIN COMPRESSED, NO S/S OF ACUTE DISTRESS NOTED, ALL DRSG'S C/D/I, PT DENIES NEEDS AT THIS TIME, WILL CONTINUE TO MONITOR
[2019-05-02] VITALS (48 sets, daily range): BP systolic 92–138; BP diastolic 55–94
--- NOTE | 2019-05-02 02:30 | NUR ---
PT C/O ACID REFLUX, CAUSING NAUSEA, ZOFRAN GIVEN EARLIER IN SHIFT PT STATED "DID NOT HELP", REGLAN GIVEN PER MAR/ORDERS, VSS, WILL CONTINUE TO MONITOR
--- NOTE | 2019-05-02 03:00 | NUR ---
REASSESSMENT COMPLETE SEE FLOW SHEET, NO ACUTE CHANGES FROM PRIOR ASSESSMENT, PT AWAKE AND ALERT, ABLE TO DRINK SIPS OF H2O, VSS, NSR ON CM, LEFT RADIAL ART LINE POSITIONAL, NIBP ON RIGHT ARM, REPOSITIONED PT TO DANGLE ON BEDSIDE, PT STATED FEELING DIZZY WHEN SITTING UP ON BEDSIDE BUT ABLE TO COMPLETE 10 MIN, I/S AND COUGH DEEP BREATHE COMPLETED, PT REPOSITIONED IN BED FOR COMFORT WITH HOB 30 DEG, LINES AND TUBES REPOSITIONED, MINIMAL CT AND RADHA DRAIN OUTPUT NOTED, VSS, WILL CONTINUE TO MONITOR
--- NOTE | 2019-05-02 06:30 | NUR ---
CHG BED BATH COMPLETED WITH ENRIQUE CATH CARE, VSS, WILL CONTINUE TO MONITOR
[2019-05-02 06:46] LABS: HEMATOCRIT 41.6 % (42.0-54.0); HEMOGLOBIN 13.8 g/dL (13.5-17.5); MCH 30.1 pg (26.0-34.0); MCHC 33.2 g/dL (31.0-37.0); MCV 90.6 fL (80.0-100.0); MEAN PLATELET VOLUME 9.4 fL (7.4-10.4); PLATELET COUNT 173 10x3/uL (130-400); RBC 4.59 10x6/uL (4.20-6.10); WBC 21.3 10x3/uL (4.8-10.8)
[2019-05-02 06:50] LABS: ALBUMIN 2.8 g/dL (3.4-5.0); ALKALINE PHOSPHATASE 37 U/L (46-116); ALT (SGPT) 23 U/L (10-68); BILIRUBIN - TOTAL 0.59 mg/dL (0.2-1.3); CALC OSMOLALITY 281 mosm/kg (275-300); CALCIUM 7.4 mg/dL (8.5-10.1); CARBON DIOXIDE 28.4 mmol/L (21.0-32.0); CHLORIDE - SERUM 106 mmol/L (98-107); CREATININE - SERUM 0.9 mg/dL (0.6-1.3); GLUCOSE 169 mg/dL (74-106); POTASSIUM - SERUM 4.2 mmol/L (3.5-5.1); PROTEIN - SERUM 5.5 g/dL (6.4-8.2); SODIUM 140 mmol/L (136-145); UREA NITROGEN 11 mg/dL (7-18); eGFR NON AFRICAN AMERICAN 86 mL/min (90-120)
--- NOTE | 2019-05-02 06:55 | NUR ---
ASSISTED PT TO BEDSIDE CHAIR WITH RNx3 IN ROOM, LINES AND TUBES REPOSITIONED, VSS, NSR ON CM, PT C/O /10 INCISIONAL ACHING PAIN, PRN PAIN MED GIVEN SEE Sep, SHIFT RN AT BEDSIDE AND REPORT GIVEN
[2019-05-02 07:26] LABS: LYMPHOCYTES 2 % (15-50); MONOCYTES 5 % (2-11); NEUTROPHILS 77 % (40-80); PLATELET ESTIMATE NORMAL
--- NOTE | 2019-05-02 08:26 | NUR ---
LEÓN HAMLIN PER ORDERS. PULLS BETWEEN [phone] ON INSENTIVE SPIROMETER. WILL CONTINUE TO MONITOR.
--- NOTE | 2019-05-02 09:59 | NUR ---
Nutrition Follow-up: POD#1 CABG. Pt reports drinking juice this AM. Slight nausea. RN reports indigestion. Diet: Clear Liquid, advance to Regular Wt: 201.2# Last BM: 04/30 per pt Labs noted: Glu 169, Ca 7.4, Alb 2.8 Meds noted: Colace, Senokot Rec ADAT to cardiac carb consistent as medically feasible. RD following.
--- NOTE | 2019-05-02 12:29 | NUR ---
BLOOD GLUCOSE 163. INSULIN DRIP TURNED OFF. GAVE 2UNITS OF REGULAR INSULIN PER SLIDING SCALE.
--- NOTE | 2019-05-02 12:57 | OP ---
PATIENT NAME: VANE SINGH MEDICAL RECORD: [id number] :37 LOCATION:D.CVI D.CV03 ADMISSION DATE:04/27/19 SURGEON: BUZZ LORENZANA MD DATE OF OPERATION: 05/01/2019 SURGEON: Buzz Lorenzana MD GROUTMAN: SILVIO Courtney MD and Emigdio Bacon. OPERATION PERFORMED: 1. Coronary artery bypass graft times 2 (left internal mammary artery to LAD, reverse saphenous vein graft from aorta to right coronary artery). 2. Endoscopic saphenous vein harvest. PREOPERATIVE DIAGNOSES: Coronary artery disease with myocardial infarction. POSTOPERATIVE DIAGNOSES: Coronary artery disease with myocardial infarction plus moderate ascending aortic aneurysm. ANESTHESIA: General endotracheal anesthesia. ESTIMATED BLOOD LOSS: Total cardiopulmonary bypass with Cell Saver retransfusion, no bank blood transfusion. COMPLICATIONS: None. SPECIMENS: None. CONDITION: Stable. DISPOSITION: CV ICU. OPERATIVE FINDINGS: 1. Moderate large varicose greater saphenous vein from the left thigh, not used. The left EVH was performed due to history of right DVT. The portion used for the right graft was a good quality piece of vein. 2. Internal mammary artery was a good conduit. 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 3. Normal appearing heart, mild mitral regurgitation, good contractility. 4. LAD 2.0 mm. The first and second diagonal vessels were small and not grafted. 5. Right coronary artery, 2.5 mm. 6. Ascending aorta 4.2 cm with normal wall thickness. OPERATIVE INDICATION: Coronary artery disease and myocardial infarction. DESCRIPTION OF PROCEDURE: The patient was brought to the operating suite. General anesthesia was obtained. The patient prepped and draped. Greater saphenous vein harvested endoscopically from the left thigh. Side branches were divided with electrocautery. The vessel was ligated proximally and distally and removed. Side branches were tied and the pin sites were oversewn. Leg was closed in 2 layers. Median sternotomy incision was made. Subcutaneous tissue was divided with electrocautery. The sternum was divided with a saw. Left hemisternum was OPERATIVE REPORT [id number] VANE SINGH elevated. Left pleural cavity was entered. Left internal mammary artery was taken down as a pedicle graft. Sternal retractor was placed. Pericardium was opened. Heparin was given. Aorta was recannulated. Dual stage venous cannula was inserted. The Internal mammary artery clipped distally and made ready for anastomosis. Activated clotting time was appropriately elevated and the patient was placed on cardiopulmonary bypass. Sites for distal anastomosis were selected. The patient's temperature drifted downwardly. Antegrade cardioplegia cannula was inserted. Crossclamp was placed. Cardioplegia was given antegrade and this repeated at 15-minute intervals including down the vein graft. Distal anastomoses were performed in standard technique. Proximal anastomosis with single cross-clamp technique. The aortic root was de-aired, cross clamp removed. Proximal anastomosis tied down. Vein graft de-aired and flow restored. Proximal and distal anastomosis inspected for bleeding. The patient was fully rewarmed, weaned from cardiopulmonary bypass and was stable. The patient was decannulated. Cannulation sites were oversewn. Protamine was given. The graft lay appropriately. Antibiotic irrigation ensued. Ventricular and atrial pacing wires were placed as were the drains. The pericardial fat was loosely reapproximated. Left chest was evacuated and irrigated. The internal mammary harvest site was inspected for bleeding. Sternum was closed with wires. Fascia was closed. Subcutaneous tissue was closed. Skin was closed. Dermabond was placed. The needle and sponge counts were reported as correct and the patient was taken to ICU in stable condition. TRANSINT:[id number] Voice Confirmation ID: [id number] DOCUMENT ID: [id number] BUZZ LORENZANA MD at 1257 CC: EDGAR ROBISON M.D. and RADHA MCKEON MD [id number] DICTATION DATE: 05/01/19 1636 NUT SIFTER: 05/02/19 0121 ADM IN [place] [id number] [place] [address]
--- NOTE | 2019-05-02 13:30 | NUR ---
PT ASSISTED BACK INTO BED. CT PULLED BY DR LORENZANA AND DRESSING APPLIED. PT TOLERATED WELL. WILL CONT POC.
--- NOTE | 2019-05-02 16:00 | NUR ---
JERONIMO REMOVED FROM LEG. INCISIONS WELL APPROIMATED AND VICK. WILL CONT POC.
--- NOTE | 2019-05-02 17:00 | NUR ---
MEAL TRAY PROVIDED FOR THE PT.
--- NOTE | 2019-05-02 18:57 | NUR ---
ORAL CARE DONE WITH PERIDEX
--- NOTE | 2019-05-02 19:00 | NUR ---
REPORT RECEIVED AT BEDSIDE, SHIFT ASSESSMENT COMPLETE PER FLOW SHEET, PT AWAKE AND ALERT, HOB ELEVATED 30DEG, RT IJ CVL PATENT DRSG C/D/I, MIDSTERNAL DRSG C/D/I, SUBSTERNAL RADHA DRAIN COMPRESSED DRSG C/D/I, CRITCORE ENRIQUE CATH SECURED, LLE HARVEST SITES C/D/I VICK, SCD AND ROGERS SMILEY BLE, NC @2L/MIN, VSS, NSR ON CM, I/S COMPLETED WITH GOOD EFFORT, WILL CONTINUE TO MONITOR
--- NOTE | 2019-05-02 23:00 | NUR ---
REASSESSMENT COMPLETE SEE FLOW SHEET, PT RESTING IN BED, REPOSITIONED FOR COMFORT, NO ACUTE CHANGES SINCE PRIOR ASSESSMENT, VSS, NSR ON CM, I/S COMPLETED 1000-1250ML x10, LARGE CUP ICE WATER GIVEN PER REQUEST, WILL CONTINUE TO MONITOR
[2019-05-03] VITALS (27 sets, daily range): BP systolic 91–129; BP diastolic 47–79
--- NOTE | 2019-05-03 01:00 | NUR ---
PT RESTING COMFORTABLY IN BED, MEDS GIVEN PER MAR/ORDERS, NO ACUTE S/S OF DISTRESS NOTED, PT STATES HE HAS HICCUPS THAT START WHEN HE MOVES HIS BODY AND CAUSES PT TO FEEL NAUSEATED, PRN REGLAN GIVEN PER MAR/ORDERS, VSS, NSR ON CM, WILL CONTINUE TO MONITOR
--- NOTE | 2019-05-03 03:00 | NUR ---
REASSESSMENT COMPLETE SEE FLOW SHEET FOR FURTHER, NO ACUTE CHANGES SINCE PRIOR ASSESSMENT, REPOSITIONED PT FOR COMFORT, I/S COMPLETED 1000-1250ML x10, VSS, WILL CONTINUE TO MONITOR
--- NOTE | 2019-05-03 05:30 | NUR ---
CHG BATH AND COMPLETE LINEN CHANGE, YELLOW GOWN PLACED ON PT, ROGERS HOSE AND NON-SKID SOCKS ON, REPOSITIONED PT TO BEDSIDE, MINIMAL ASSIST WITH MOVING TO BEDSIDE CHAIR, PT STATED HE FELT NAUSEATED AFTER MOVING, EMESIS BAG PROVIDED AND PRN ZOFRAN GIVEN PER MAR/ORDERS, VSS, NSR ON CM, WILL CONTINUE TO MONITOR
[2019-05-03 05:40] LABS: BASOPHILS 0.1 % (0-2); EOSINOPHILS 1.5 % (0-7); HEMATOCRIT 35.6 % (42.0-54.0); HEMOGLOBIN 11.9 g/dL (13.5-17.5); IMMATURE GRANULOCYTES 0.4 % (0-5); LYMPHOCYTES 7.7 % (15-50); MCH 30.3 pg (26.0-34.0); MCHC 33.4 g/dL (31.0-37.0); MCV 90.6 fL (80.0-100.0); MEAN PLATELET VOLUME 9.4 fL (7.4-10.4); MONOCYTES 8.2 % (2-11); NEUTROPHILS 82.1 % (40-80); RBC 3.93 10x6/uL (4.20-6.10); WBC 18.9 10x3/uL (4.8-10.8)
[2019-05-03 05:57] LABS: PLATELET COUNT 134 10x3/uL (130-400)
[2019-05-03 06:17] LABS: ALBUMIN 2.4 g/dL (3.4-5.0); ALKALINE PHOSPHATASE 40 U/L (46-116); ALT (SGPT) 20 U/L (10-68); BILIRUBIN - TOTAL 0.73 mg/dL (0.2-1.3); CALC OSMOLALITY 272 mosm/kg (275-300); CALCIUM 7.4 mg/dL (8.5-10.1); CARBON DIOXIDE 31.2 mmol/L (21.0-32.0); CHLORIDE - SERUM 103 mmol/L (98-107); CREATININE - SERUM 0.7 mg/dL (0.6-1.3); GLUCOSE 167 mg/dL (74-106); POTASSIUM - SERUM 4.1 mmol/L (3.5-5.1); PROTEIN - SERUM 5.1 g/dL (6.4-8.2); SODIUM 135 mmol/L (136-145); UREA NITROGEN 11 mg/dL (7-18); eGFR NON AFRICAN AMERICAN > 90 mL/min (90-120)
--- NOTE | 2019-05-03 07:30 | NUR ---
AWAKE AND ALERT SKIN WARM AND DRY. ON ROOM AIR. CHEST AND SUBSTERNAL DRESSING DRY AND INTACT. RIJ SALINE LOCKED. ENRIQUE CATH PATENT DRAINING CLEAR CARMINE URINE. MONITOR SR. RADHA DRAIN COMPRESSED WITH SERSANG DRAINAGE. PACER WIRES SECURE TO SUBSTERNAL. UP IN CHAIR AT BEDSIDE. LEGS ELEVATED. NO DISTRESS. LEFT HAND WEAKER STATES HE BURNED HIS LEFT HAND AND IT NORMAL FOR HIM
--- NOTE | 2019-05-03 08:15 | NUR ---
CLEAR LIQUID BREAKFAST SERVED. DRANK CHICKEN BROTH. OFFERED REGULAR BREAKFAST DECLINE. OK FOR LUNCH. NAUSEA BETTER.
--- NOTE | 2019-05-03 10:00 | NUR ---
HERE. UPDATE GIVEN
--- NOTE | 2019-05-03 10:27 | NUR ---
DR. LORENZANA HERE. ORDERS RECEIVED TO IN ENRIQUE CATH. PATIENT TOLERATED WELL. 350 ML CLOUDY CARMINE URINE IN BAG. AT BEDSIDE TALKED WITH DOCTOR. NO DISTRESS
--- NOTE | 2019-05-03 11:30 | NUR ---
LUNCH TRAY SERVED ATE [facility]. NO DISTRESS. RADHA DRAIN INTACT WITH SERSANG DRAINAGE MINIMAL AMOUNT. BULB COMPRESSED. MONITOR SR.
--- NOTE | 2019-05-03 12:30 | NUR ---
AMBULATED BACK TO BED. STANDS WELL. TOLERATED WELL. NO DISTRESS. DID REQUEST A PAIN PILL ONCE IN BED.
--- NOTE | 2019-05-03 13:29 | TEE ---
PATIENT:VANE SINGH MEDICAL RECORD: [id number] LOCATION:[place] [address] AGE OF PATIENT: 84 ADMISSION DATE: 04/27/19 SEX: M REFERRING PHYSICIAN: INTERPRETING PHYSICIAN: DARIEN GARCIA MD TRANSESOPHAGEAL ECHOCARDIOGRAM Date: 05/01/19 SANDRA CHARGE Y INDICATIONS: CABG PREMEDICATIONS: PATIENT'S RESPONSE PROCEDURE DOPPLER MEASUREMENTS: LVIT LA 3.8 PA 95 RA LVOT 84 RVOT 84 Asc. Ao 113 AV Gradient Peak 5.09 AV Mean 3.05 AV Area 2.6 MV Gradient Peak 4.23 MV Mean 1.35 MV Area INTERPRETATION: Doppler: 2-D: COLOR FLOW DOPPLER NORMAL SALINE STUDY: MISCELLANOUS: DIAGNOSIS: PLAN: Grape Grower:Elsie Jones Freelance Copywriter: Umberto RICE COMMENTS: DATE OF SERVICE: PROCEDURE: Transesophageal echo evaluation of valvular structures during bypass surgery. FINDINGS: 1. Left ventricular chamber size is within normal limits. Left ventricular systolic function is normal at 55%. 2. Left atrium, right atrium, and right ventricular chamber sizes are within TRANSESOPHAGEAL ECHOCARDIOGRAM REPORT [id number] VANE SINGH normal limits. 3. Valvular structures have normal structure and motion. 4. Doppler interrogation reveals mild mitral regurgitation, trace aortic insufficiency. No other valvular insufficiency or stenosis. 5. No evidence of pericardial effusion or left ventricular thrombus. TRANSINT:[id number] Voice Confirmation ID: [id number] DOCUMENT ID: [id number] at 1329 CC: [id number] DICTATION DATE: 05/01/19 1708 ROUSTABOUT CREW LEADER: 05/02/19 0759 ADM IN [place] [address] [place] [address]
--- NOTE | 2019-05-03 13:30 | NUR ---
AMBULATE IN GARAY PER PHYSICAL THERAPY. TOLERATED FAIR
--- NOTE | 2019-05-03 14:00 | NUR ---
RADHA DRAIN PULLED PER JENN. PATIENT TOELRATED FAIR.
--- NOTE | 2019-05-03 15:30 | NUR ---
AMBULATED TO BATHROOM VOIDED. UP IN CHAIR AT BEDSIDE.
--- NOTE | 2019-05-03 16:30 | NUR ---
DINNER TRAY SERVED. FAMILY AT BEDSIDE.
--- NOTE | 2019-05-03 17:01 | NUR ---
PATIENT SITTING UP IN CHAIR FINISH EATING, HEART RATE INCREASED TO 128-130 LOOKS LIKE SINUS RHYTHM. BLOOD PRESSURE STABLE. DENIES ANY PAIN, STATES HE WAS JUST SITTING HERE WHEN IT HAPPEN, FAMILY AT BEDSIDE. DR. LORENZANA NOTIFIED. ORDERS RECIEVED TO GET AN EKG. WHEN NURSE ENTER ROOM TO GET EKG, PATIENT RATE BACK DOWN INTO 80'S SINUS RHYTHM. PLACE AMBULATED TO BED. NO CHANGE IN RHYTHM.
--- NOTE | 2019-05-03 17:48 | NUR ---
PATIENT RETURN TO ST RHYTHM RATE 128, 12 LEAD EKG DONE, INDICATES ST, BLOOD PRESSURE STABLE, PATIENT DENIES ANY SYMPTOMS, STATES HE HEARD THE ALARM GO OFF. LOPRESSOR 2.5 MG IV PER RIJ GIVEN SLOWLY.
--- NOTE | 2019-05-03 19:00 | NUR ---
DR. LORENZANA CALLED ABOUT HEART RATE OF 119 AFTER LOPRESSOR GIVEN. ORDERS RECEIVED FOR ANOTHER LOPRESSOR 2.5 MG. WHEN DRUG REMOVED FROM [facility]IES. HEART 75. LOPRESSOR NOT GIVEN AT [facility]IST [facility].
--- NOTE | 2019-05-03 19:00 | NUR ---
SHIFT ASSESSMENT COMPLETE. PT IS A&O X4, PERRLA, 3 MM, BRISK REACTION TO LIGHT. RR EVEN AND UNLABORED, PT IS ON ROOM AIR, CLEAR BREATH SOUNDS HEARD BILAT THROUGHOUT ALL LOBES. R IJ CVL S/L, SWAB CAPS IN USE. MIDSTERNAL DRESSING CDI. SUBSTERNAL DRESSING CDI, TPM WIRES NOTED. R WRIST DRESSING CDI. TRACE SWELLING ON UPPER AND LOWER EXT. ABD DISTENDED, BS ACTIVE X4. L LEG HARVEST SITES X2, VICK, WELL APPROXIMATED. ROGERS AND SCDS ON AND FUNCTIONING. RADIAL AND PEDAL PULSES PALP. VSS. WILL CONT TO MONITOR CLOSELY.
--- NOTE | 2019-05-03 19:16 | NUR ---
PT COMPLAINING OF INDIGESTION. TUMS ORDERED, WILL GIVE PRN DOSE.
--- NOTE | 2019-05-03 20:00 | NUR ---
FSBS 158. WILL GIVE 2 UN INSULIN WITH PM MEDS.
--- NOTE | 2019-05-03 22:16 | NUR ---
PLACED 2L/MIN HUMIDIFIED O2 ON VIA NC D/T DECREASED O2 SAT (88%). O2 SAT IS NOW 92-94%. NO FURTHER NEEDS AT THIS TIME. WILL CONT TO MONITOR.
--- NOTE | 2019-05-03 23:00 | NUR ---
REASSESSMENT COMPLETE. PT IS SITTING UP IN BED WATCHING TV WITH NO COMPLAINTS OF PAIN OR DISCOMFORT. VSS. NO CHANGES FROM PREVIOUS ASSESSMENT. CALL LIGHT IN REACH, BED IN LOWEST POSITION. WILL CONT CLOSE MONITORING IN CVICU.
[2019-05-04] VITALS (25 sets, daily range): BP systolic 96–129; BP diastolic 49–70
--- NOTE | 2019-05-04 00:12 | NUR ---
PT STATES THAT HE IS HAVING INDIGESTION AND REQUESTS PRN DOSE OF TUMS. TUMS ADMIN. NO FURTHER REQUESTS. WILL CONT WITH POC.
--- NOTE | 2019-05-04 01:00 | NUR ---
PT RESTING WITH NO SIGNS OF ACUTE DISTRESS NOTED. VSS. WILL CONT WITH POC.
--- NOTE | 2019-05-04 03:00 | NUR ---
REASSESSMENT COMPLETE. RT AT BEDSIDE WITH BREATHING TX. NO CHANGES IN PT CONDITION. SEE FLOWSHEET FOR FURTHER DETAILS. VSS. CALL LIGHT IN REACH, WILL CONT WITH POC.
--- NOTE | 2019-05-04 05:00 | NUR ---
CHG BATH AND COMPLETE LINEN CHANGE PROVIDED. ASSISTED WITH XFER TO CHAIR, GAIT STEADY. SUBSTERNAL DRESSING CHANGE PROVIDED PER ORDERS. PT TOLERATED WELL. NO FURTHER NEEDS AT THIS TIME. REFRESHMENTS BROUGHT TO BEDSIDE.
--- NOTE | 2019-05-04 06:00 | NUR ---
R IJ CVL WOULD NOT DRAW FOR AM LAB. CALLING LAB FOR LAB DRAW. FLUSHED LINE WITH SALINE FLUSH, SWAB CAPS IN PLACE.
--- NOTE | 2019-05-04 06:43 | NUR ---
CALLED LAB AGAIN TO REMIND THEM OF AM LAB DRAW.
--- NOTE | 2019-05-04 07:00 | NUR ---
AWAKES EASILY IN CHAIR AT BEDSIDE. DENIES ANY PAIN. CHEST AND SUBSTERNAL DRESSING DRY AND INTACT. PACER WIRES SECURE TO SUBSTERNALDRESSING.. MONITOR . ROGERS SMILEY ON. [facility] CENTRAL LINE DRESSING DRY AND INTACT.
[2019-05-04 07:11] LABS: BASOPHILS 0.1 % (0-2); EOSINOPHILS 3.5 % (0-7); HEMATOCRIT 37.7 % (42.0-54.0); HEMOGLOBIN 12.5 g/dL (13.5-17.5); IMMATURE GRANULOCYTES 0.3 % (0-5); LYMPHOCYTES 9.8 % (15-50); MCH 30.2 pg (26.0-34.0); MCHC 33.2 g/dL (31.0-37.0); MCV 91.1 fL (80.0-100.0); MEAN PLATELET VOLUME 9.4 fL (7.4-10.4); MONOCYTES 8.7 % (2-11); NEUTROPHILS 77.6 % (40-80); PLATELET COUNT 137 10x3/uL (130-400); RBC 4.14 10x6/uL (4.20-6.10); RDW 13.9 % (11.5-14.5); WBC 14.8 10x3/uL (4.8-10.8)
[2019-05-04 07:30] LABS: ALBUMIN 2.6 g/dL (3.4-5.0); ALKALINE PHOSPHATASE 58 U/L (46-116); ALT (SGPT) 21 U/L (10-68); BILIRUBIN - TOTAL 0.79 mg/dL (0.2-1.3); CALC OSMOLALITY 281 mosm/kg (275-300); CALCIUM 8.3 mg/dL (8.5-10.1); CARBON DIOXIDE 31.3 mmol/L (21.0-32.0); CHLORIDE - SERUM 104 mmol/L (98-107); CREATININE - SERUM 0.8 mg/dL (0.6-1.3); GLUCOSE 162 mg/dL (74-106); POTASSIUM - SERUM 4.4 mmol/L (3.5-5.1); SODIUM 139 mmol/L (136-145); UREA NITROGEN 12 mg/dL (7-18); eGFR NON AFRICAN AMERICAN > 90 mL/min (90-120)
--- NOTE | 2019-05-04 08:00 | NUR ---
BREAKFAST SERVED ATE [facility].
--- NOTE | 2019-05-04 09:23 | NUR ---
PHYSICAL THERAPY HERE AMBULATED IN GARAY
--- NOTE | 2019-05-04 10:30 | NUR ---
DR. LORENZANA HERE. ORDERS RECEIVED TO [facility] CENTR[facility] LINE.
--- NOTE | 2019-05-04 11:30 | NUR ---
LUNCH TRAY SERVED ATE HALF AT BEDSIDE. ASSISTING WITH CARE. PATIENT AMBULATING BACK FOR TO THE BATHROOM.
--- NOTE | 2019-05-04 13:00 | NUR ---
RETURNED TO BED. RIJ CENTRAL REMOVED. PATIENT TOLERATED FAIR. DRESSING APPLIED.
--- NOTE | 2019-05-04 14:10 | NUR ---
WATCHING TV WITH . NAPPING AT INTERVALS NO DISTRESS
--- NOTE | 2019-05-04 14:54 | NUR ---
NAPPING NO DISTRESS AT BEDSIDE
--- NOTE | 2019-05-04 15:48 | NUR ---
SITTING UP IN CHAIR. NO DISTRESS. WATCHING TV. CHEST AND SUBSTERNAL DRESSING DRY AND INTACT.
--- NOTE | 2019-05-04 16:15 | NUR ---
AMBULATED TO CHAIR AT BEDSIDE. TOLERATED WELL. TRESSA PHILIPPE SERVED. VISITORS AT BEDSIDE
--- NOTE | 2019-05-04 17:30 | NUR ---
AMBULATED TO BED. TOLERATED WELL. NO DISTRESS. GOOD APPETITE AT DINNER.
--- NOTE | 2019-05-04 19:00 | NUR ---
REPORT RECEIVED AT BEDSIDE, SHIFT ASSESSMENT COMPLETE PER FLOW SHEET, PT AWAKE AND ALERT, DENIES PAIN AT THIS TIME, NSR ON CM, VSS, PRIOR CVL SITE ON RIGHT NECK DRSG C/D/I, MIDSTERNAL AND SUBSTERNAL DRSG'S C/D/I, TPM WIRES COILED AND SECURED UNDER SUBSTERNAL DRSG, RLE HARVEST SITES C/D/I VICK, SCD AND ROGERS HOSE ON BLE, CALL LIGHT IN REACH, BED ALARM ON, WILL CONTINUE TO MONITOR
--- NOTE | 2019-05-04 21:00 | NUR ---
MEDS GIVEN PER MAR/ORDERS, NO ACUTE S/S OF DISTRESS NOTED, VSS, TCDB AND I/S COMPLETED WITH GOOD EFFORT, 1000-1500ML x10, WILL CONTINUE TO MONITOR
--- NOTE | 2019-05-04 23:00 | NUR ---
REASSESSMENT COMPLETE SEE FLOW SHEET, NO ACUTE CHANGES SINCE PRIOR ASSESSMENT, PT RESTING IN BED, ABLE TO WAKE WITH MINIMAL STIMULI, AAOx4, DENIES PAIN OR NEEDS AT THIS TIME, VSS, NSR ON CM, REPOSITIONES SELF IN BED FOR COMFORT, CALL LIGHT IN REACH, BED ALARM ON, WILL CONTINUE TO MONITOR
[2019-05-05] VITALS (29 sets, daily range): BP systolic 99–132; BP diastolic 47–72
--- NOTE | 2019-05-05 01:00 | NUR ---
PT RASTING WITH EYES CLOSED, NO ACUTE S/S OF DISTRESS, VSS, NSR ON CM, MIDSTERNAL/SUBSTERNAL DRSG'S C/D/I, WILL CONTINUE TO MONITOR
--- NOTE | 2019-05-05 03:00 | NUR ---
REASSESSMENT COMPLETE SEE FLOW SHEET, PT RESTING WITH EYES CLOSED, NO S/S OF ACUTE CHANGE OR DISTRESS, VSS, NSR ON CM, WILL CONTINUE TO MONITOR
--- NOTE | 2019-05-05 05:30 | NUR ---
CHG BATH AND COMPLETE LINEN CHANGE, SUBSTERNAL DRSG CHANGE PER ORDERS, PT TOLLERATED WELL WITHOUT DISTRESS, I&O'S AND DAILY WEIGHTS COLLECTED, AMBULATED TO BEDSIDE CHAIR, REPOSITIONED FOR COMFORT, VSS, NSR ON CM, WILL CONTINUE TO MONITOR
[2019-05-05 06:18] LABS: HEMATOCRIT 36.3 % (42.0-54.0); MCH 29.9 pg (26.0-34.0); MCHC 33.1 g/dL (31.0-37.0); MCV 90.5 fL (80.0-100.0); MEAN PLATELET VOLUME 9.5 fL (7.4-10.4); RBC 4.01 10x6/uL (4.20-6.10); RDW 13.8 % (11.5-14.5); WBC 11.1 10x3/uL (4.8-10.8)
[2019-05-05 06:32] LABS: ALBUMIN 2.3 g/dL (3.4-5.0); ALKALINE PHOSPHATASE 55 U/L (46-116); ALT (SGPT) 23 U/L (10-68); BILIRUBIN - TOTAL 0.82 mg/dL (0.2-1.3); CALC OSMOLALITY 280 mosm/kg (275-300); CALCIUM 7.9 mg/dL (8.5-10.1); CARBON DIOXIDE 30.3 mmol/L (21.0-32.0); CHLORIDE - SERUM 105 mmol/L (98-107); CREATININE - SERUM 0.7 mg/dL (0.6-1.3); GLUCOSE 130 mg/dL (74-106); PROTEIN - SERUM 5.6 g/dL (6.4-8.2); SODIUM 140 mmol/L (136-145); UREA NITROGEN 13 mg/dL (7-18); eGFR NON AFRICAN AMERICAN > 90 mL/min (90-120)
[2019-05-05 06:33] LABS: POTASSIUM - SERUM 3.4 mmol/L (3.5-5.1)
--- NOTE | 2019-05-05 07:00 | NUR ---
AWAKE AND ALERT UP IN CHAIR AT BEDSIDE. SKIN WARM AND DRY. MID CHEST DRESSING DRY AND INTACT. SUBSTERNAL DRESSING DRY AND INTACT. PACER WIRES SECURE TO SUBSTERNAL DRESSING. LEFT LEG DRESSING DRY WITHOUT DRAINAGE OPEN TO AIR. DENIES PAIN. MONITOR SR. NO DISTRESS
--- NOTE | 2019-05-05 08:00 | NUR ---
BREAKFAST TRAY SERVED
--- NOTE | 2019-05-05 10:00 | NUR ---
NAPPING IN CHAIR NO DISTRESS.
--- NOTE | 2019-05-05 11:00 | NUR ---
AMBULATED IN GARAY 500 FT. TOLERATED WELL NO DISTRESS. DR. LORENZANA HERE
--- NOTE | 2019-05-05 11:30 | NUR ---
LUNCH TRAY SERVED ATE WELL
--- NOTE | 2019-05-05 12:21 | NUR ---
UP TO BATHROOM. VOIDED. AMBULATES WELL. NO DISTRESS
--- NOTE | 2019-05-05 13:54 | NUR ---
AMBULATED IN GARAY 500 FEET TOLERATED WELL NO DISTRESS
--- NOTE | 2019-05-05 16:00 | NUR ---
AMBULATED TO BATHROOM. LARGE FORMED STOOL. TOLERATED WELL NO DISTRESS.
--- NOTE | 2019-05-05 16:45 | NUR ---
DINNER TRAY SERVED ATE WELL
--- NOTE | 2019-05-05 17:28 | NUR ---
AMBULATED TO BED. HEAD OF BED ELEVATED 30 DEGREES. SCD PLACED. NO DISTRESS. WATCHING TV. CALL LIGHT WITHIN HANDS REACH
--- NOTE | 2019-05-05 22:00 | NUR ---
RESTING QUIETLY. DENIES NEEDS OR PAIN. LIGHT TURNED OFF PER REQUEST.
[2019-05-06] VITALS (30 sets, daily range): BP systolic 105–153; BP diastolic 54–86
[2019-05-06 06:33] LABS: HEMATOCRIT 36.7 % (42.0-54.0); HEMOGLOBIN 12.2 g/dL (13.5-17.5); MCH 29.8 pg (26.0-34.0); MCHC 33.2 g/dL (31.0-37.0); MCV 89.7 fL (80.0-100.0); MEAN PLATELET VOLUME 9.3 fL (7.4-10.4); RBC 4.09 10x6/uL (4.20-6.10); RDW 13.8 % (11.5-14.5); WBC 8.8 10x3/uL (4.8-10.8)
--- NOTE | 2019-05-06 06:45 | NUR ---
PTS HR INCREASES INTO 130'S AFTER RECIEVING BREATHING TREATMENT.
[2019-05-06 07:27] LABS: ALBUMIN 2.3 g/dL (3.4-5.0); ALKALINE PHOSPHATASE 64 U/L (46-116); BILIRUBIN - TOTAL 0.68 mg/dL (0.2-1.3); CALC OSMOLALITY 282 mosm/kg (275-300); CALCIUM 8.2 mg/dL (8.5-10.1); CARBON DIOXIDE 27.7 mmol/L (21.0-32.0); CHLORIDE - SERUM 107 mmol/L (98-107); CREATININE - SERUM 0.7 mg/dL (0.6-1.3); GLUCOSE 142 mg/dL (74-106); PROTEIN - SERUM 5.6 g/dL (6.4-8.2); SODIUM 141 mmol/L (136-145); UREA NITROGEN 13 mg/dL (7-18); eGFR NON AFRICAN AMERICAN > 90 mL/min (90-120)
--- NOTE | 2019-05-06 07:30 | NUR ---
REPORT RECEIVED. PT ASSISTED UP TO CHAIR. ASKED FOR BATH FROM OFF-GOING NURSE; PROVIDED.
[2019-05-06 07:33] LABS: ALT (SGPT) 63 U/L (10-68); POTASSIUM - SERUM 4.2 mmol/L (3.5-5.1)
--- NOTE | 2019-05-06 07:36 | NUR ---
PT ASSISTED WITH CHG BATH. SUBSTERNAL DRESSING CHANGED.
--- NOTE | 2019-05-06 09:08 | NUR ---
MORNING MEDICATIONS HAVE BEEN PROVIDED. BREAKFAST CONSUMED. PT NOW UP TO TOILET. STANDBY ASSIST.
--- NOTE | 2019-05-06 09:44 | NUR ---
PT RESTING QUIETLY IN CHAIR AT BEDSIDE. EYES CLOSED. HR 60'S AT THIS TIME.
--- NOTE | 2019-05-06 10:40 | NUR ---
PIV STARTED TO LEFT AC. STICK X2. METOPROLOL GIVEN ORDERED
--- NOTE | 2019-05-06 12:13 | NUR ---
PT HAS HAD LUNCH. AT BEDSIDE. VSS. HR CURRENTLY 76.
--- NOTE | 2019-05-06 13:34 | NUR ---
PT UP WALKED CIRLCE OF 500FT WITH . TOLERATED WELL. RETURNED TO CHAIR WITH HR IN 90s
--- NOTE | 2019-05-06 15:24 | NUR ---
PT HAS HAD SEVERAL EPISODES OF TACHYCARDIA. DR LORENZANA PROVIDED WITH EKG. ASKED FOR DR ROBISON TO BE SHOWN. WILL CONTINUE TO MONITOR. IF NEEDED, MAY CHANGE MEDICATIONS TOMORROW. TO NOTIFY IF REMAINS ELEVATED MORE THAN 30 MINUTES/AFFECTS BLOOD PRESSURES.
--- NOTE | 2019-05-06 19:00 | NUR ---
REPORT RECEIVED FROM OFF GOING NURSE. PT IS SITTING IN BED WATCHING TV AT THIS TIME. INITIAL ASSESSMENT COMPLETED, SEE FLOWSHEET FOR DETAILS. PT HR CONTINUES TO GO UP INTO THE 130'S, AT THIS TIME IT WILL GO DOWN WHEN THE PT COUGHS. WILL CONTINUE TO MONITOR. NO SIGNS OF ACUTE DISTRESS NOTED.
--- NOTE | 2019-05-06 21:00 | NUR ---
PT IS SITTING IN BED WITH EYES CLOSED UPON ENTERING ROOM. MED PASS COMPLETED, SEE EMAR FOR DETAILS. PT REQUESTED MORE WATER, WATER PROVIDED. NO FURTHER NEEDS NOTED. NO SIGNS OF ACUTE DISTRESS. WILL CONTINUE TO MONITOR.
--- NOTE | 2019-05-06 23:00 | NUR ---
REASSESSMENT COMPLETED, SEE FLOWSHEET FOR DETAILS. PT IS LAYING IN BED WITH EYES CLOSED AT THIS TIME. PT'S HR CONTINUES TO JUMP UP INTO THE 130'S WHILE PT IS AWAKE, WHEN PT IS SLEEPING HR MAINTAINS A MUCH LOWER RATE. NO NEEDS NOTED. NO SIGNS OF ACUTE DISTRESS. WILL CONTINUE TO MONITOR.
[2019-05-07] VITALS (43 sets, daily range): BP systolic 87–133; BP diastolic 53–88
--- NOTE | 2019-05-07 01:00 | NUR ---
PT IS LAYING IN BED WITH EYES CLOSED AT THIS TIME. NO NEEDS VOICED. NO SIGNS OF ACUTE DISTRESS. WILL CONTINUE TO MONITOR.
--- NOTE | 2019-05-07 03:00 | NUR ---
REASSESSMENT COMPLETED, SEE FLOWSHEET FOR DETAILS. PT IS LAYING IN BED WITH EYES CLOSED AT THIS TIME. NO NEEDS VOICED. NO SIGNS OF ACUTE DISTRESS. WILL CONTINUE TO MONITOR.
--- NOTE | 2019-05-07 05:00 | NUR ---
PT IS IN BED RESTING WITH EYES CLOSED. NO NEEDS NOTED. NO SIGNS OF ACUTE DISTRESS. WILL CONTINUE TO MONITOR.
--- NOTE | 2019-05-07 08:29 | NUR ---
dr jefferson by to see patient. let him know hr over 130's and sustained for last hour. asked for 2.5mg iv lopressor given and hold po dose. iv dose given. pt hr went to 80's shortly after.
--- NOTE | 2019-05-07 09:34 | NUR ---
FAMILY AT BEDSIDE AT THIS TIME. PT HR REMAINS SR 90
--- NOTE | 2019-05-07 09:55 | NUR ---
Nutrition Follow-up: Reports appetite improving. Most of breakfast eaten this AM. Diet: Regular PO intake: 80% avg x 5 meals Wt: 198.4# (down from 201.2# on 05/02) Last BM: 05/06 Labs noted: Glu 142 Meds noted: Glucophage, Humulin, Senokot, Colace -Change to carb consistent diet 2/2 DM. -RD following.
--- NOTE | 2019-05-07 12:22 | NUR ---
METOPROLOL 2.5MG GIVEN ORDERED AND STAT ECHO ORDERED. MOLD CUTTING MACHINE OPERATOR CURRENTLY AT BEDSIDE SETTING UP
--- NOTE | 2019-05-07 13:01 | NUR ---
NOTIFIED CARDIOLOGY NURSE MEENA THAT ECHO HAS BEEN COMPLETED. PT REMAINS ST WITH HR 110-120. HAVE LEFT PT IN BED TO REST FOR TIME BEING.
[2019-05-07 13:52] LABS: CALC OSMOLALITY 277 mosm/kg (275-300); CALCIUM 8.7 mg/dL (8.5-10.1); CHLORIDE - SERUM 104 mmol/L (98-107); CREATININE - SERUM 0.7 mg/dL (0.6-1.3); GLUCOSE 106 mg/dL (74-106); POTASSIUM - SERUM 4.7 mmol/L (3.5-5.1); SODIUM 139 mmol/L (136-145); UREA NITROGEN 13 mg/dL (7-18); eGFR NON AFRICAN AMERICAN > 90 mL/min (90-120)
--- NOTE | 2019-05-07 14:55 | NUR ---
pt has been up and walked 500ft. remains regular sinus rhythm. dr jefferson has been at bedside and spoke with patient and . pt up to chair at this time.
--- NOTE | 2019-05-07 17:47 | NUR ---
FULL CHG BATH GIVEN.
--- NOTE | 2019-05-07 18:37 | NUR ---
BREATHING TX NOT GIVEN DUE TO POSSIBLE ELEVATION IN HR EXPIERINECED THROUGHOUT DAY
--- NOTE | 2019-05-07 18:39 | NUR ---
BS C/D TO ANTERIOR EAGLE AUS. SPO2 99 FIO2 21% EQUALATERAL BS RR 18 UNLABORED REINA EXCURSION NO CYANOSIS 2500 IS NO IMMEDIATE S/S RESP DISTRESS
--- NOTE | 2019-05-07 19:00 | NUR ---
REPORT RECEIVED FROM OFF GOING NURSE. PT IS SITTING UP IN BED WATCHING TV AT THIS TIME. INITIAL ASSESSMENT COMPLETED, SEE FLOWSHEET FOR DETAILS. NO NEEDS VOICED AT THIS TIME. NO SIGNS OF ACUTE DISTRESS. WILL CONTINUE TO MONITOR.
--- NOTE | 2019-05-07 21:00 | NUR ---
PT IS RESTING IN BED WATCHING TV AT THIS TIME. EVENING MED PASS COMPLETED, SEE EMAR FOR DETAILS. PT HAS NO NEEDS VOICED AT THIS TIME. NO SIGNS OF ACUTE DISTRESS. WILL CONTINUE TO MONITOR.
--- NOTE | 2019-05-07 23:00 | NUR ---
REASSESSMENT COMPLETED, SEE FLOWSHEET FOR DETAILS. PT IS RESTING IN BED WATCHING TV AT THIS TIME. PT STATED HE WAS SLEEPING UNTIL HE HAD TO WAKE UP TO USE THE RESTROOM AND NOW CAN NOT GO BACK TO SLEEP. NO NEEDS VOICED AT THIS TIME. NO SIGNS OF ACUTE DISTRESS. WILL CONTINUE TO MONITOR.
[2019-05-08] VITALS (24 sets, daily range): BP systolic 94–123; BP diastolic 51–67
--- NOTE | 2019-05-08 01:00 | NUR ---
PT IS LAYING IN BED WITH EYES CLOSED AT THIS TIME. NO NEEDS VOICED. NO SIGNS OF ACUTE DISTRESS. WILL CONTINUE TO MONITOR.
--- NOTE | 2019-05-08 05:00 | NUR ---
PT IS UP IN CHAIR, NO NEEDS VOICED. NO SIGNS OF ACUTE DISTRESS. WILL CONTINUE TO MONITOR.
--- NOTE | 2019-05-08 07:00 | NUR ---
REC'D REPORT AND RESUMED CARE, UP IN CHAIR, AAO, VSS, DENIES PAIN AT THIS TIME, AASESSMENT COMPLETED PER FLOWSHEET, NO NEEDS AT THIS TIME
[2019-05-08 07:09] LABS: CALC OSMOLALITY 280 mosm/kg (275-300); CALCIUM 8.8 mg/dL (8.5-10.1); CARBON DIOXIDE 27.8 mmol/L (21.0-32.0); CHLORIDE - SERUM 103 mmol/L (98-107); CREATININE - SERUM 0.9 mg/dL (0.6-1.3); GLUCOSE 148 mg/dL (74-106); POTASSIUM - SERUM 4.2 mmol/L (3.5-5.1); SODIUM 138 mmol/L (136-145); UREA NITROGEN 18 mg/dL (7-18); eGFR NON AFRICAN AMERICAN 86 mL/min (90-120)
[2019-05-08 07:12] LABS: MCH 29.8 pg (26.0-34.0); MCHC 33.3 g/dL (31.0-37.0); MCV 89.4 fL (80.0-100.0); MEAN PLATELET VOLUME 9.2 fL (7.4-10.4); RBC 4.36 10x6/uL (4.20-6.10); RDW 13.7 % (11.5-14.5); WBC 13.5 10x3/uL (4.8-10.8)
--- NOTE | 2019-05-08 07:50 | NUR ---
BREAKFAST TRAY TO BEDSIDE, INDEPENDENT WITH SET UP AND EATING
--- NOTE | 2019-05-08 08:30 | NUR ---
USING IS AT BEDSIDE, 2500 PRESSURE INHALE
--- NOTE | 2019-05-08 09:08 | NUR ---
MORNING MEDS GIVEN PER SEP FLOWSHEET, REFUSED COLACE, STATES HE IS ALREADY HAVING BOWEL MOVEMENTS
--- NOTE | 2019-05-08 10:30 | NUR ---
AMBULATED IN UNIT WITHOUT DIFFICULTY
--- NOTE | 2019-05-08 11:00 | NUR ---
RESTING WITH FAMILY AT BEDSIDE, DENIES PAIN, NO NEEDS A THIS TIME, NO ACUTE CHANGE FROM PREVIOUS.
--- NOTE | 2019-05-08 11:30 | NUR ---
BTB AND TPM WIRES REMOVED BY MELISSA FRAGOSO, VSS
--- NOTE | 2019-05-08 11:45 | NUR ---
HR 120'S, ORDER GIVEN TO GIVE 2.5 METOPROLOL IF CONTINUES
--- NOTE | 2019-05-08 13:00 | NUR ---
METOPROLOL DC'D, HR IN THE 70'S WILL CONTINUE TO MONITOR
--- NOTE | 2019-05-08 17:45 | NUR ---
BTB WITH ASSIST, TOLERATED TRANSFER WITHOUT DIFFICULTY
--- NOTE | 2019-05-08 19:00 | NUR ---
REPORT RECEIVED, SHIFT ASSESSMENT COMPLETE PER FLOW SHEET, PT AAOx4, DENIES PAIN OR NEEDS, REPOSITIONES SELF, NSR ON CM, VSS, HOB ELEVATED, INCISION SITES C/D/I, LT AC PIV SL, SCD AND ROGERS SMILEY ON BLE, CALL LIGHT IN REACH, WILL CONTINUE TO MONITOR
--- NOTE | 2019-05-08 23:00 | NUR ---
REASSESSMENT COMPLETE SEE FLOW SHEET, PT AWAKE AND ALERT, DENIES PAIN OR NEEDS, VSS, NSR ON CM, WILL CONTINUE TO MONITOR
[2019-05-09] VITALS (17 sets, daily range): BP systolic 96–112; BP diastolic 50–90
--- NOTE | 2019-05-09 03:00 | NUR ---
REASSESSMENT COMPLETE SEE FLOW SHEET, NO ACUTE CHANGES OR S/S OF DISTRESS NOTED, VSS, NSR ON CM, HOB ELEVATED, CALL LIGHT IN REACH, WILL CONTINUE TO MONITOR
--- NOTE | 2019-05-09 06:30 | NUR ---
BED BATH AND LINEN CHANGE COMPLETED, YELLOW GOWN PLACED, BLE ROGERS HOSE ON, PT AMBULATED OOB TO CHAIR, NSR ON CM, VSS, WILL CONTINUE TO MONITOR
--- NOTE | 2019-05-09 08:25 | NUR ---
UP IN CHAIR EATING BREAKFAST AT THIS TIME. NO ACUTE DISTRESS NOTED. VSS. WILL CONTINUE PLAN OF CARE.
--- NOTE | 2019-05-09 09:07 | NUR ---
PT TOOK SELF TO BATHROOM, CONTINENT BOWEL MOVEMENT NOTED. PT BACK IN CHAIR, MONITORING EQUIPMENT PLACED. NO ACUTE DISTERSS NOTED. VSS. WILL CONTINUE PLAN OF CARE.
--- NOTE | 2019-05-09 09:25 | NUR ---
WILL ADMIN BACTROBAN OINTMENT (ADMIN VIA INTRANASAL) WHEN RECIEVE FROM PHARMACY.
[2019-05-09] MEDS ORDERED: BETAPACE 80 MG80 MG PO (09:33)
[2019-05-09] MEDS ORDERED: LIPITOR10 MG PO (09:33)
[2019-05-09] MEDS ORDERED: ASPIRIN EC81 M1 PO (09:33)
[2019-05-09] MEDS ORDERED: COLACE100 MG PO (09:39)
--- NOTE | 2019-05-09 11:00 | NUR ---
UP IN CHAIR VISITING WITH VISITORS AT THIS TIME. NO ACUTE DISTRESS NOTED. VSS. CALL LIGHT IN REACH. WILL CONTINUE PLAN OF CARE.
--- NOTE | 2019-05-09 12:38 | NUR ---
PT REQUESTED FOR THIS NURSE TO MAKE FOLLOWUP APPTS WITH PCP AND CARDIOLOGY. APPT MADE WITH PTS PCP, DR MCKEON, ON MondayMAY 28 AT 10AM. SPOKE WITH LUI AT DR MCKEON'S OFFICE. CARDIOLOGY APT MADE WITH DR ROBISON ON MAY 28 AT 4020 IN [place] (ADDRESS IS [address] [place] [address]). SPOKE WITH CARMINE AT DR ROBISON'S OFFICE. PT AND PTS FAMILY NOTIFIED OF THESE DATES. VSS. WILL CONTINUE PLAN OF CARE.
[2019-05-09] MEDS ORDERED: PERCOCET 5-3251 TAB PO (13:08)
--- NOTE | 2019-05-09 14:07 | NUR ---
WILL DISCHARGE PT AFTER DR LARSON NURSES HAVE PERFORMED DISCHARGE TEACHINGS WITH PT. NO ACUTE DISTRESS NOTED. VSS. WILL CONTINUE PLAN OF CARE.
--- NOTE | 2019-05-09 16:10 | NUR ---
UP IN CHAIR RESTING AT THIS TIME WITH EYES CLOSED. NO ACUTE DISTRESS NOTED. VSS. AWAKENS EASILY WHEN SPOKEN TO. RESPIRATIONS STEADY AND UNLABORED. FAMILY AT BEDSIDE. WILL DISCHARGE PT WHEN DR LARSON NURSE COMES TO DO DISCHARGE TEACHINGS. WILL CONTINUE PLAN OF CARE.
--- NOTE | 2019-05-09 18:00 | NUR ---
PT DISCHARGED HOME AT THIS TIME VIA PERSONAL VEHICLE ACCOMPANIED BY AND FRIENDS. NO ACUTE DISTRESS NOTED. PT LEFT WITH ALL DISCHARGE PAPERWORK, INFORMATION REGARDING POSTOP CARE INCLUDING THE "MOVING RIGHT ALONG" BOOKLET AND THE HEART DC INSTRUCTION SHEET. PT IS AWARE OF UPCOMING APPOINTMENTS AND STATES HE WILL BE ABLE TO MAKE APPOINTMENTS. MED SCRIPTS SENT TO PHARMACY OF CHOICE ([facility] IN [place]: WERE E-SCRIPTED TO PHARMACY) PT AND PTS STATE ABILITY TO SHOP TAILOR SCRIPTS BUT WILL NOT BE ABLE TO SHOP TAILOR UNTIL TOMORROW THEREFORE PM SCHEDULED SOTALOL SENT HOME WITH PT TO TAKE FOR THE 9PM DOSE. VSS. NO ACUTE DISTRESS NOTED. ALSO LEFT WITH ALL PERSONAL ITEMS INCLUDING PHYSICIAN OFFICE NUMBERS. PT AND DENY ANY FURTHER QUESTIONS OR CONCERNS. IV TO LT FOREARM DC, CATHETER TIP INTACT. NO FURTHER ACTIONS.
--- NOTE | 2019-05-09 20:19 | MORECARE ---
CASE MANAGEMENT DISCHARGE SUMMARY PATIENT: VANE SINGH UNIT: [id number] ADM DATE: 04/27/19 AGE: 84 : 37 SEX: M ROOM/BED: [facility] AUTHOR: DIANE CUNNINGHAM PHYSICIAN: REFERRING PHYSICIAN: CHAUNCEY IGNACIO MD DATE OF SERVICE: 05/09/19 Discharge Plan Patient Name: VANE SINGH Facility: [facility]:[place] : 1935 Planned Disposition: Home Anticipated Discharge Date: 04/30/19 Discharge Date: 05/09/2019 Expected LOS: 3 Initial Reviewer: [email or web address] Initial Review Date: 04/30/2019 Generated: 05/09/19 9:19 pm Comments DCP- Discharge Planning Updated by [id number]: Jenn Branch on 05/09/19 7:[address] Patient Name: VANE SINGH Encounter No: [id number] : 1935 Primary Insurance: MEDICARE A & B Anticipated DC Date: 04-30-2019 Planned Disposition: Home External Planned Provider: : Roxana/Chucky ROJAS SIGNED - DENIES ANY NEEDS DCP follow-up note: Patient and family in agreement with discharge plan. No changes to plan. Case management will follow and assist as needed. Jenn Perezr DCP- Discharge Planning Updated by [email or web address]: Kip Crowe on 04/30/19 2:[address] Patient Name: VANE SINGH Admission Status: ER Accout number: [id number] Admission Date: 04-27-2019 : 1935 Admission Diagnosis: Attending: CHAUNCEY IGNACIO Current LOS: 3 Anticipated DC Date: 04-30-2019 Planned Disposition: Home Primary Insurance: MEDICARE A & B Discharge Planning Comments: CM MET WITH PT AND SPOUSE IN ROOM TO DISCUSS DISCHARGE PLANNING AND NEEDS. VANE SINGH provided verbal consent to discuss current and ongoing needs with/in the presence of: , JENN. PT REPORTS LIVING AT HOME INDEPENDENTLY WITH SPOUSE. PT HAS A WALKER AND BEDSIDE COMMODE THAT HE DOES NOT USE. PT HAS NO NO MEDICAL EQUIPMENT PROVIDER PREFERENCE. PT HAS NO OUTSIDE SERVICES ASSISTING IN THE HOME. CM DISCUSSED AVAILABILITY OF HOME HEALTH, REHAB SERVICES AND MEDICAL EQUIPMENT. PT DENIES DISCHARGE NEEDS, REPORTS HIS WILL PICK HIM UP FOR DISCHARGE HOME. PT PLANS TO DISCHARGE HOME WITH SPOUSE, SPOUSE TO TRANSPORT HOME AT DISCHARGE. PT HAS NO ANTICIPATED DISCHARGE NEEDS AT THIS TIME. CM TO FOLLOW AND ASSIST IF NEEDED. Pack Train Driver: Kip Bethwell DCPIA - Discharge Planning Initial Assessment Updated by [email or web address]: Kip Crowe on 04/30/19 3:29 pm * Is the patient Alert and Oriented? Yes * How many steps to enter\exit or inside your home? * PCP DR. BLACKBURN [place] * Pharmacy [facility] IN [place] OR [place] [facility] * Preadmission Environment Home with Family * ADLs Independent * Equipment Bedside Commode Walker * Other Equipment NO MEDICAL EQUIPMENT PROVIDER PREFERENCE * List name and contact numbers for known caregivers / representatives who currently or will assist patient after discharge: JENN SINGH, SPOUSE, * Verbal permission to speak to the caregivers and representatives has been obtained from the patient. Yes * Community resources currently utilized None * Please name any agencies selected above. NONE * Additional services required to return to the preadmission environment? No * Can the patient safely return to the preadmission environment? Yes * Has this patient been hospitalized within the prior 30 days at any hospital? Yes Coverage Notice Reviewer: [id number] Chanel Branch Notice Issued Date-Time: 05/09/2019 9:45 Notice Type: IM Discharge Notice Notice Delivered To: Patient Relationship to Patient: Self Powder Cutting Operator Name: Delivery Method: HAND - Hand Delivered Jenn Days: Prior Verbal Notification: Recipient Understood Notice: Yes Recipient Signature: Yes Med Rec Note Co-signed by Attending: Coverage Notice Comment: Last DP export: 04/30/19 2:39 Patient Name: VANE SINGH Page [id number] at 2019 All edits/amendments must be made on the electronic document DICTATION DATE: 05/09/192018 EMERGENCY ROOM SPECIALIST: ZEESHAN 05/09/19 2019 RPT#: [id number] DC DATE:05/09/19 STATUS: DIS IN [facility] [address] [place] [address] END OF REPORT
== END 2019-05-09 18:00 | disposition home or self-care (01) | DRG 234 ==
LOC: D.ER 12:27 → D.CVICU 14:27 → D.M2 14:27 → D.CVICU 05-01 14:15
PROVIDERS: Emergency Medicine; Family Medicine; Internal Medicine Cardiovascular Disease; Internal Medicine Interventional Cardiology; Thoracic Surgery (Cardiothoracic Vascular Surgery); ADMIT Internal Medicine Nephrology; ATTEND Internal Medicine Nephrology
PROC: B2151ZZ Fluoroscopy of Left Heart using Low Osmolar Contrast (ICD-10-PCS; 2019-04-29)
PROC: 4A023N7 Measurement of Cardiac Sampling and Pressure, Left Heart, Percutaneous Approach (ICD-10-PCS; 2019-04-29)
PROC: B2111ZZ Fluoroscopy of Multiple Coronary Arteries using Low Osmolar Contrast (ICD-10-PCS; principal; 2019-04-29 08:30)
PROC: 02100Z9 Bypass Coronary Artery, One Artery from Left Internal Mammary, Open Approach (ICD-10-PCS; 2019-05-01)
PROC: 021009W Bypass Coronary Artery, One Artery from Aorta with Autologous Venous Tissue, Open Approach (ICD-10-PCS; 2019-05-01)
PROC: 06BP4ZZ Excision of Right Saphenous Vein, Percutaneous Endoscopic Approach (ICD-10-PCS; 2019-05-01)
PROC: 5A1221Z Performance of Cardiac Output, Continuous (ICD-10-PCS; 2019-05-01)
PROC: B24BZZ4 Ultrasonography of Heart with Aorta, Transesophageal (ICD-10-PCS; 2019-05-01)
DX: I21.4 Non-ST elevation (NSTEMI) myocardial infarction (principal); I10 Essential (primary) hypertension; E11.9 Type 2 diabetes mellitus without complications; E78.5 Hyperlipidemia, unspecified; K21.9 Gastro-esophageal reflux disease without esophagitis; Z87.891 Personal history of nicotine dependence; I25.110 Atherosclerotic heart disease of native coronary artery with unstable angina pectoris; D64.9 Anemia, unspecified; R00.0 Tachycardia, unspecified